=== PATIENT | male | born 1950 | race Caucasian/White ===

== ENCOUNTER 2016-08-25 05:58 | Inpatient (IN) | payer BC, MEDICARE ==
[~2016-08-25] VITALS: Ht 182.9 cm; Wt 83.5 kg
[~2016-08-25 05:58] MED LIST: /ACETCOD2T PO; /MOXI40TA PO; /WARF25TA PO; ACET-71 PO; ADV250INH INH; APAP325T PO; BREO1INH INH; CODE30TA PO; COMBAER6 INH; COMBIN INH; DUONSOL IN; FENO145T PO; FLUC100T PO; HOME 02; IPRASOL4 INH; LEVA500T PO; LEVA750T PO; LIDO1DIS2 TD; LIDO5DIS36 TD; LIPI20TA PO; MULT1CHW21 PO; NAPR500T2 PO; NAPRPOW4 PO; NICO21DI5 TD; NICO7DIS23 TD; OMEP20CA3 PO; OXYC-208 PO; PERCOCET PO; PRED10TA PO; PRIL40CA PO; PRO AIR INH; PROA1AER INH; TRICOR PO; TYLE325T5 PO; TYLENOL WITH CODEINE PO; VITAMIN PO; XANA0.25 PO
[2016-08-25 06:21] LABS: ABG BASE EXCESS 6.8 (-2.0-2.0); ABG DEVICE NASAL CANN; ABG HCO3 33.9 MEQ/L (22.0-26.0); ABG PARTIAL PRESSURE CO2 58.9 mmHg (35.0-45.0); ABG PARTIAL PRESSURE O2 92.7 mmHg (75.0-100.0); ABG STANDARD HCO3 30.6 MEQ/L (22.0-26.0); ABG TOTAL CO2 35.7 MEQ/L (23.0-31.0); ABG pH (ARTERIAL) 7.378 UNITS (7.350-7.450)
[2016-08-25] MEDS ORDERED: AMIODARONE HCL 150 MG/100 ML PREMIXED BAG (NEXTERONE) As Ordered ONE (06:24)
[2016-08-25] MEDS ORDERED: AMIODARONE 150MG/3ML INJ (J0282) As Ordered ONE (06:26)
[2016-08-25] MEDS ORDERED: IPRATROPIUM 0.5MG/ALBUTEROL 2.5MG INH SOL UD 3ML (DUONEB)(J7620) As Ordered ONE ×2 (06:32→14:37)
[2016-08-25 07:14] LABS: BASO % 0.2 % (0.0-1.0); EOS % 0.2 % (0.0-3.0); LARGE UNSTAINED CELL # 0.2 K/mm3 (0.0-0.4); LARGE UNSTAINED CELL % 1.7 % (0.0-4.0); LYMPH # 0.9 K/mm3 (1.5-4.5); LYMPH % 6.6 % (24.0-44.0); MEAN CORPUSCULAR HEMOGLOBIN 30.6 pg (27.0-33.0); MEAN CORPUSCULAR HGB CONC 31.7 g/dl (32.0-36.5); MEAN CORPUSCULAR VOLUME 96.3 fl (80.0-96.0); MONO # 0.8 K/mm3 (0.0-0.8); NEUTROPHILS % 85.3 % (36.0-66.0); PLATELET COUNT, AUTOMATED 219 k/mm3 (150-450); RED CELL DISTRIBUTION WIDTH 14.1 % (11.5-14.5); WHITE BLOOD COUNT 12.9 K/mm3 (4.0-10.0)
[2016-08-25 07:15] LABS: ALBUMIN 3.9 GM/DL (3.2-5.2); ALBUMIN/GLOBULIN RATIO 1.56 (1.00-1.93); BILIRUBIN,DIRECT 0.3 MG/DL (0.0-0.2); BILIRUBIN,TOTAL 1.1 MG/DL (0.2-1.0); CALCIUM LEVEL 8.9 MG/DL (8.8-10.2); CREATININE FOR GFR 1.5 MG/DL (0.70-1.30); GLOMERULAR FILTRATION RATE 49.7 (>49); POTASSIUM SERUM 4.7 MEQ/L (3.5-5.1); TOTAL PROTEIN 6.4 GM/DL (6.4-8.2)
--- NOTE | 2016-08-25 08:47 | REP ---
CT brain without contrast 08/25/2016 Indication: Syncope Comparison: None Findings: There is moderate generalized cerebral volume loss small scattered periventricular subcortical hypodensities are consistent with chronic small vessel ischemic disease. Old tiny left thalamic lacunar infarct is noted. There is moderate bilateral carotid siphon calcification ,There is no intracranial hemorrhage or extra-axial fluid collection. There is no midline shift or mass effect. Contour deformity within the left maxillary sinus consistent with old healed depressed fracture of the left anterior and lateral campos of the maxillary sinus. Small amount of mucoperiosteal thickening present in the bilateral frontoethmoidal recesses. Visualized portions of the mastoid sinuses There is no intracranial hemorrhage or extra-axial fluid collection. There is no midline shift or mass effect. Impression: No acute intracranial pathology or hemorrhage Moderate cerebral volume loss with mild chronic small vessel ischemic disease. Old tiny left thalamic lacunar infarct is noted. Mucoperiosteal thickening in bilateral frontoethmoidal recesses Signed by Maryjane Maya MD 08/25/2016 08:38 A
--- NOTE | 2016-08-25 08:50 | REP ---
MAXILLOFACIAL CT WITHOUT CONTRAST: HISTORY: Fall. Minimal mucosal thickening is present in the ethmoid sinuses. A 7 mm osteoma is present in the right frontal sinus. A 5 mm osteoma is present in the left frontal sinus. The remaining sinuses are clear. The osteomeatal units are patent. The middle and inferior nasal turbinates are partially paradoxical. 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 There is mild deviation of the nasal septum to the left. A spur is present arising from the left side of the nasal septum. The cribriform plate, medial campos of the orbits and optic canals are intact. The carotid canals form a segment of the posterolateral campos of the sphenoid sinus. The left sphenoid sinus septum inserts into left internal carotid canal wall. There is no fracture. IMPRESSION: 1. Sinus mucosal thickening as described above. 2. 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 Signed by Chris Ling MD 08/25/2016 08:55 A
[2016-08-25] MEDS ORDERED: MONT10TA2 PO (08:59)
[2016-08-25] MEDS ORDERED: ALPR1TAB3 PO (08:59)
[2016-08-25] MEDS ORDERED: PRED10TA PO (08:59)
[2016-08-25] MEDS ORDERED: NICO1DIS2 TD (09:00)
--- NOTE | 2016-08-25 09:22 | REP ---
AP and lateral views of the bilateral elbows, 08/25/2016 Indication, fall, pain in elbow Left elbow : Oblique and rotated lateral views, nonstandard positioning. There is soft tissue swelling, moderate overlying the olecranon process. Small corticated calcific fragment of bone 3 mm maximal dimension is seen off the coronoid process, likely related to old avulsion or ligamentous calcification. There is no visualized acute fracture there is no evidence of elbow joint effusion Impression: moderate soft tissue swelling overlying the olecranon process may be related to post traumatic changes or olecranon bursitis. 3 mm corticated fragment in the from the region of the coronoid process, does not appear acute. Right elbow: Oblique and lateral views, with slightly limited positioning. There is soft tissue swelling and irregularity overlying the olecranon process and the dorsal proximal ulna. There is no visualized acute fracture or dislocation. There is no visualized joint effusion. There is a small IV catheter within the antecubital fossa. Impression: No acute fracture or dislocation within the right elbow. No joint effusion Signed by Maryjane Maya MD 08/25/2016 09:14 A
--- NOTE | 2016-08-25 09:31 | REP ---
Clinical: Syncope. Comparison: 12/15/2015. Findings: Diffuse chronic pleural parenchymal changes are noted. Mediastinum and cardiac silhouette are stable. Superimposed pulmonary venous congestion and interstitial edema as well as right basilar atelectasis cannot be excluded. No effusion. No pneumothorax. Skeletal structures stable. Impression: Cannot exclude pulmonary venous congestion/interstitial edema as well as trace right basilar atelectasis. Signed by Gregg Trotter MD 08/25/2016 09:22 A
[2016-08-25] MEDS ORDERED: MORPHINE 2 MG/ML 1ML SYRINGE As Ordered ONE (10:05)
--- NOTE | 2016-08-25 12:08 | ECGEPIP ---
Stationary ECG Study [facility] - ED Test Date: 2016-08-25 Pat Name: DIPAK VILLASENOR Department: Room: - Gender: M [employer]: bree : 1950 Requested By: ROSANGELA LORENZO Order Number: [id number] Reading MD: Crissy Redmond Measurements Intervals [place] Rate: 121 P: 57 NM: 142 QRS: 68 QRSD: 102 T: 30 QT: 285 QTc: 405 Interpretive Statements SINUS TACHYCARDIA WITH OCCASIONAL VENTRICULAR PREMATURE COMPLEXES ABNORMAL RHYTHM ECG [id number] ABNORMALITY SIMILAR 12/15/15 Electronically Signed On 08-25-2016 12:07:39 EST by Crissy Redmond
[2016-08-25 12:30] VITALS: BP 130/85
[2016-08-25] MEDS ORDERED: ONDANSETRON 4 MG TAB (S0181) PO PRN (12:45)
[2016-08-25] MEDS ORDERED: ACETAMINOPHEN TAB 650MG DOSE (2X325MG) PO PRN (12:45)
[2016-08-25] MEDS ORDERED: ALBUTEROL 90 MCG/ACT 8GM HFA INHALER INH PRN (13:15)
--- NOTE | 2016-08-25 14:09 | REP ---
BILATERAL KNEE SERIES: Five views of bilateral knees performed. There is no acute fracture or dislocation. There is mild medial joint space narrowing bilaterally. There is bilateral chondrocalcinosis. Ligamentous calcification is seen along the left medial femoral condyle. Posterior vascular calcifications are seen bilaterally. There is slight patellofemoral compartment narrowing on the left. IMPRESSION: Mild bilateral degenerative changes. No fracture or dislocation. Signed by Faisal Ross MD 08/25/2016 03:23 P
--- NOTE | 2016-08-25 14:12 | REP ---
PELVIS AND BILATERAL HIPS: AP view of the pelvis and AP and frogleg views of bilateral hips performed. There is a total right hip prosthesis which appears to be in good position. However, there is a nondisplaced fracture of the proximal right femur only seen on the frogleg view. This appears to be in the immediate subtrochanteric region. I see no other evidence of acute fracture or dislocation. There are vascular calcifications in the pelvis. There is are degenerative changes of the lower lumbar spine. IMPRESSION: Nondisplaced fracture, proximal right femur adjacent to the stem of the metallic prosthesis at that location. Signed by Faisal Ross MD 08/25/2016 03:23 P
[2016-08-25] MEDS: IPRATROPIUM 0.5MG/ALBUTEROL 2.5MG INH SOL UD 3ML (DUONEB)(J7620) NEB SCH ×2 (14:42→20:00)
--- NOTE | 2016-08-25 14:55 | EDDOCDS ---
Nurse's Notes [facility] Name: Dipak Villasenor Age: 66 yrs Sex: Male : 1950 Arrival Date: 08/25/2016 Time: 05:58 Bed Ultrasound Private MD: aMria Sebastian DO Diagnosis: Altered mental status, unspecified;Fall (on) (from) unspecified stairs and steps;Pain in elbow Presentation: 08/25 06:00 Presenting complaint:. kas2 06:08 Presenting complaint: EMS states: went to bed at 2200, patient was in his chair at nn1 that time. woke up at 0530, found patient on the floor. Unknown down time. Patient had altered mental status at that time. Suicide/Homicide risk assessment- the patient denies having any suicidal and/or homicidal ideations and does not present with any other emotional, behavioral or mental health complaints. Status: Patient is not a service inspector or dependent. Transition of care: patient was not received from another setting of care. 06:08 Acuity: MAE Level 3 nn1 06:08 Method Of Arrival: Ambulance nn1 06:47 Adult Sepsis Screening: Patient has new or worsening altered mentation (1 point). kas2 Patient's respiratory rate is less than 22. Systolic blood pressure is greater than 100. Patient has a qSOFA score of 1- Negative Sepsis Screen. Triage Assessment: 06:18 General: Appears distressed, uncomfortable, unkempt, Behavior is drowsy, restless. kas2 Pain: Location: right elbow and left elbow Pain currently is 7 out of 10 on a pain scale. Neurological: Level of Consciousness is awake, alert, confused, obeys commands, Oriented to person, place, Nurse Sane are equal bilaterally Speech garbled at times. Facial symmetry appears normal, Pupils are irregular, left pupil 4mm and right pupil is 2mm. Cardiovascular: Capillary refill < 3 seconds Heart tones S1 S2 present Rhythm is. 06:32 Respiratory: Airway is patent Respiratory effort is even, unlabored, Respiratory kas2 pattern is regular, symmetrical, Breath sounds are clear Breath sounds are diminished bilaterally. GI: Abdomen is distended, Bowel sounds present X 4 quads. Abd is soft X 4 quads Abd is non tender X 4 quads. Derm: Skin is moist, Skin is flushed, Skin temperature is warm Rash noted that is on raised red rash burn along mid section of abdomen. 06:43 Injury Description: Laceration sustained to bridge of nose. kas2 Historical: - Allergies: Hornets; SULFA (SULFONAMIDES); - Home Meds: 1. alprazolam 1 mg Oral Tb24 1 tab twice a day 2. atorvastatin 20 mg oral tab 1 tab once daily 3. montelukast 10 mg oral tab 1 tab nightly 4. prednisone 10 mg Oral tab 1 tab 3 times per day 5. albuterol sulfate 2.5 mg /3 mL (0.083 %) Inhl nebu 6. pro air- HFA 90mcg daily 7. Breo Ellipta 100-25 mcg/dose inhalation dsdv 8. Combivent 18-103 mcg/actuation Inhl aero 2 puffs 4 times per day 9. Lidoderm 5 % Topical ptmd as needed 10. Oxygen 2-3L - PMHx: COPD; Emphysema; Hypercholesterolemia; - PSHx: Knee Arthroplasty, Left; Hip Arthroplasty, Right; Knee Arthroplasty, Right; lumbar surgery; - Social history: Smoking status: Patient states former smoker of tobacco. No barriers to communication noted, The patient speaks fluent Burmese, Speaks appropriately for age. - Family history: Not pertinent. - : The pt / caregiver states he / she is not on anticoagulants. Home medication list is obtained from the patient, family members. - Exposure Risk Screening:: None identified. Screenin:49 Screening information is obtained from family members. Fall risk: At risk due to age, kas2 injury. Assistance ADL's: requires no assistance with activities of daily living. Abuse/DV Screen: The patient / caregiver reports he/she is: Unable to Assess. Nutritional screening: No deficits noted. Advance Directives: Unable to assess Advance Directive status due to pt condition. home support is adequate. Assessment: 06:10 General: Patients heart rate showing bigeminy on monitor and ECG done and shows the kas2 same. Dr. Lorenzo aware.. 06:48 General: See triage note.. kas2 06:49 General: Patient has a laceration on the bridge of his nose and a laceration on each kas2 elbow left and right. Bleeding controlled. Patient remains confused with garbled speech at times. Alert and awake and oriented to person and place. Family at bedside.. 07:22 General: Appears Behavior is cooperative, pleasant. Pain: Location: bilateral knees and mlb1 elbows Pain currently is 7 out of 10 on a pain scale. Respiratory: Airway is patent Respiratory effort is even, unlabored. Injury Description: Bruise multiple bruises to elbows and knees laceration to bridge of nose scabbed swelling to bilateral eyes. 08:21 General: Appears in no apparent distress, to be sleeping. Respiratory: Airway is patent mlb1 Respiratory effort is even, unlabored. 09:16 General: Appears in no apparent distress, Behavior is cooperative, pleasant. Pain: mlb1 Location: bilateral knees and elbows Pain currently is 7 out of 10 on a pain scale. Neurological: Level of Consciousness is awake, alert, Oriented to person, place, time, Speech garbled. Respiratory: Airway is patent Respiratory effort is even, unlabored. 10:27 General: Appears in no apparent distress, Behavior is appropriate for age, cooperative. mlb1 Pain: Location: bilateral knees, and elbows Pain currently is 6 out of 10 on a pain scale. Neurological: Level of Consciousness is awake, alert, Oriented to person, place, time. 11:30 General: Appears in no apparent distress, comfortable, Behavior is appropriate for age, mlb1 cooperative. Pain: Location: bilateral knees and elbows Pain currently is 5 out of 10 on a pain scale. Neurological: Level of Consciousness is awake, alert, Oriented to person, place, time, Moves all extremities. Full function Speech garbled. 12:30 General: Appears in no apparent distress, comfortable, Behavior is appropriate for age, mlb1 cooperative. Pain: Location: bilateral knees and elbows Pain currently is 5 out of 10 on a pain scale. Neurological: Level of Consciousness is awake, alert, Oriented to person, place, time. Respiratory: No deficits noted. 13:24 General: Appears in no apparent distress, comfortable, Behavior is appropriate for age, mlb1 cooperative. Pain: Location: bilaral knee and elbows Pain currently is 5 out of 10 on a pain scale. Neurological: Level of Consciousness is awake, alert, Oriented to person, place, time, Moves all extremities. Full function Speech garbled. Respiratory: Airway is patent Respiratory effort is even, unlabored. 14:52 General: Appears in no apparent distress, comfortable, Behavior is appropriate for age, ck1 cooperative. Pain: Location: bridge of nose Noted to be quiet/stoic. Neurological: Level of Consciousness is awake, alert, Oriented to person, place, time. Cardiovascular: Rhythm is irregular. Respiratory: Respiratory effort is unlabored, Respiratory pattern is regular. GI: No deficits noted. Musculoskeletal: Circulation, motion, and sensation intact Range of motion intact in all extremities. Vital Signs: 06:12 BP 106 / 69 (auto/); mlb1 06:13 BP 106 / 69; Pulse 123; Resp 16; Pulse Ox 95% on 13% Venturi mask; Weight 79.38 kg; sew Height 6 ft. 0 in. (182.88 cm); 06:13 Pulse 124 MON; mlb1 06:15 BP 109 / 72 (auto/); mlb1 06:16 Pulse 124 MON; Pulse Ox 95% ; mlb1 06:30 BP 106 / 62 (auto/); mlb1 06:30 Pulse 122 MON; Pulse Ox 95% ; mlb1 06:45 BP 134 / 79 (auto/); mlb1 06:45 Pulse 122 MON; Pulse Ox 86% ; mlb1 06:59 Temp 100.3(A); kas2 07:00 BP 115 / 65 (auto/); mlb1 07:01 Pulse 116 MON; Pulse Ox 94% ; mlb1 07:15 BP 100 / 58 (auto/); mlb1 07:16 Pulse 119 MON; mlb1 07:30 BP 104 / 84 (auto/); mlb1 07:31 Pulse 114 MON; Pulse Ox 94% ; mlb1 07:45 BP 116 / 11 (auto/); mlb1 07:48 Pulse 109 MON; mlb1 08:00 BP 102 / 68 (auto/); mlb1 08:00 Pulse 108 MON; Pulse Ox 92% ; mlb1 08:15 BP 124 / 72 (auto/); mlb1 08:16 Pulse 107 MON; Pulse Ox 92% ; mlb1 08:30 BP 125 / 82 (auto/); mlb1 08:31 Pulse 110 MON; Pulse Ox 95% ; mlb1 08:45 BP 134 / 75 (auto/); mlb1 08:46 Pulse 111 MON; Pulse Ox 97% ; mlb1 09:04 BP 132 / 82 (auto/); mlb1 09:05 Pulse 107 MON; mlb1 09:19 BP 130 / 91 (auto/); mlb1 09:20 Pulse 103 MON; Pulse Ox 94% ; mlb1 09:34 BP 132 / 69 (auto/); mlb1 09:35 Pulse 108 MON; Pulse Ox 93% ; mlb1 09:49 BP 118 / 75 (auto/); mlb1 09:50 Pulse 104 MON; mlb1 10:04 BP 149 / 88 (auto/); mlb1 10:05 Pulse 105 MON; mlb1 10:25 BP 111 / 61 (auto/); mlb1 10:26 Pulse 103 MON; Pulse Ox 96% ; mlb1 10:27 BP 111 / 61; Pulse 103; Resp 16; Pulse Ox 97% on 3 lpm NC; Pain 6/10; mlb1 10:34 BP 123 / 73 (auto/); mlb1 10:35 Pulse 102 MON; Pulse Ox 94% ; mlb1 10:49 BP 129 / 69 (auto/); mlb1 10:50 Pulse 94 MON; Pulse Ox 91% ; mlb1 11:04 BP 129 / 60 (auto/); mlb1 11:05 Pulse 101 MON; Pulse Ox 94% ; mlb1 11:19 BP 125 / 66 (auto/); mlb1 11:20 Pulse 92 MON; Pulse Ox 92% ; mlb1 11:34 BP 121 / 83 (auto/); mlb1 11:35 Pulse 95 MON; mlb1 11:49 BP 118 / 72 (auto/); mlb1 11:50 Pulse 98 MON; mlb1 11:59 BP 116 / 75 (auto/); mlb1 12:00 Pulse 96 MON; Pulse Ox 97% ; mlb1 12:04 BP 132 / 84 (auto/); mlb1 12:05 Pulse 94 MON; Pulse Ox 98% ; mlb1 12:19 BP 130 / 85 (auto/); mlb1 12:20 Pulse 93 MON; Pulse Ox 96% ; mlb1 12:34 BP 136 / 67 (auto/); mlb1 12:34 Pulse 95 MON; Pulse Ox 96% ; mlb1 14:50 BP 117 / 73; Pulse 100; Resp 20; Temp 98.5; Pulse Ox 94% ; jlf 06:13 Body Mass Index 23.73 (79.38 kg, 182.88 cm) sew Vitals: 06:13 Log In Time N/A - ambulance arrival. sew ED Course: 05:59 Kathe Quintero,RN is Primary Nurse. sew 05:59 Patient visited by Crissy Fritz. sew 05:59 Maria Sebastian is Private Physician. sew 05:59 Patient moved to 2 sew 06:10 Triage Initiated nn1 06:16 Patient visited by Crissy Fritz. sew 06:20 -Arterial Blood Gas Sent. dk 06:32 Patient visited by Josi Waldrop, Software Specialist. jlm 06:32 EKG done. (by ED staff). Reviewed by Rosangela Lorenzo DO. jlm 06:48 Maintain field IV. Dressing intact. Site clean & dry. Gauge & site: 18G in left AC. No kas2 procedures done that require assistance. 06:49 Inserted saline lock: 20 gauge in right antecubital area and blood collected. The kas2 patient tolerated the procedure well. 06:51 Patient visited by Kathe Quintero RN. kas2 06:59 Patient visited by Kathe Quintero RN. kas2 07:00 Lactic Acid (Ross tube on ice) Sent. kas2 07:00 CBC with Diff Sent. kas2 07:00 MED Profile Sent. kas2 07:00 Liver Profile Sent. kas2 07:00 -Blood Culture Sent. kas2 07:09 Malaika Contreras MD is Attending Physician. fg 07:10 Patient visited by Malaika Contreras MD. fg 07:22 BLOOD CULTURES Sent. mlb1 07:56 Patient visited by Ti Crook PCA. jlf 08:02 Primary Nurse role handed off by Kathe Quintero RN btw 08:45 [facility] Payment Agreement was scanned into [employer] and attached to record. mm15 09:04 Patient visited by Ti Crook PCA. jlf 09:08 CT Head Without Contrast Returned. EDMS 09:08 CT Maxilofacial W/out Contrast Returned. EDMS 09:42 Patient visited by Ti Crook PCA. jlf 09:48 Elbow, (AP\E\Lat) Returned. EDMS 09:48 Chest, 1 View Returned. EDMS 10:15 Patient visited by Ti Crook PCA. jlf 10:28 Patient visited by Los Velazquez, ABIMAEL. mlb1 11:00 Patient visited by Ti Crook PCA. jlf 11:01 Ani Lind is Hospitalizing Provider. fg 12:04 Patient visited by Los Velazquez, ABIMAEL. mlb1 12:30 EKG-ADULT Returned. EDMS 12:50 Patient moved to Ultrasound am17 13:25 Patient visited by Los Velazquez RN. mlb1 13:36 The patient / caregiver is instructed regarding the plan of care and ED course. mlb1 14:03 RENAL US Returned. EDMS 14:49 Knee, complete Returned. EDMS 14:50 Patient visited by Ti Crook PCA. jlf 14:50 HIPS BILAT W-AP PELVIS Returned. EDMS Administered Medications: 06:37 Drug: Albuterol-Ipratropium 3 ml [ipratropium-albuterol 0.5 mg-3 mg(2.5 mg base)/3 mL dk nebulization soln (3 mL)] Route: Inhalation; 06:46 Drug: amiodarone 150 mg [amiodarone 150 mg/100 mL (1.5 mg/mL) in dextrose, iso-osmotic kas2 IV (100 mL)] Route: IVP; Site: right antecubital; 10:10 Drug: morphine 2 mg [morphine 2 mg/mL intravenous cartridge (1 mL)] Route: IVP; Site: mlb1 right antecubital; 10:27 Follow up: BP 111 / 61; Pulse 103 bpm; Resp 16 bpm; Pulse Ox 97% 3 lpm Nasal Cannula; mlb1 Pain 6/10 Adult RT: 06:20 ABG's drawn from right radial artery allens test done and positive pressure held for 5 dk minutes no bleeding noted pressure bandage applied specimen sent pt. tolerated well. 06:37 Initial Med Neb Given as ordered Patient was instructed and evaluated on procedure dk Patient tolerated procedure well without adverse effect. O2 via nasal cannula \T\ 4L/min. Respiratory: No deficits noted. Airway is patent Respiratory effort is even, unlabored, Breath sounds are diminished bilaterally. Order Results: Lab Order: -Arterial Blood Gas; SPEC'M 08/25/16 06:16 Test: ABG pH (ARTERIAL); Value: 7.378; Range: 7.350-7.450; Units: UNITS; Status: F Test: ABG PARTIAL PRESSURE CO2; Value: 58.9; Range: 35.0-45.0; Abnormal: Above high normal; Units: mmHg; Status: F Test: ABG PARTIAL PRESSURE O2; Value: 92.7; Range: 75.0-100.0; Units: mmHg; Status: F Test: ABG TOTAL CO2; Value: 35.7; Range: 23.0-31.0; Abnormal: Above high normal; Units: MEQ/L; Status: F Test: ABG HCO3; Value: 33.9; Range: 22.0-26.0; Abnormal: Above high normal; Units: MEQ/L; Status: F Test: ABG BASE EXCESS; Value: 6.8; Range: -2.0-2.0; Abnormal: Above high normal; Status: F Test: ABG STANDARD HCO3; Value: 30.6; Range: 22.0-26.0; Abnormal: Above high normal; Units: MEQ/L; Status: F Test: ABG O2 SATURATION; Value: 97.0; Range: 95.0-99.0; Units: %; Status: F Test: ABG DEVICE; Value: NASAL DARA; Status: F Lab Order: Lactic Acid (Ross tube on ice); SPEC'M 08/25/16 06:12 Test: LACTIC ACID LEVEL, LACTATE; Value: 0.8; Range: 0.4-2.0; Units: MMOL/L; Status: F Lab Order: CBC with Diff; SPEC'M 08/25/16 06:12 Test: WHITE BLOOD COUNT; Value: 12.9; Range: 4.0-10.0; Abnormal: Above high normal; Units: K/mm3; Status: F Test: RED BLOOD COUNT; Value: 4.55; Range: 4.30-6.10; Units: M/mm3; Status: F Test: HEMOGLOBIN; Value: 13.9; Range: 14.0-18.0; Abnormal: Below low normal; Units: g/dl; Status: F Test: HEMATOCRIT; Value: 43.8; Range: 42.0-52.0; Units: %; Status: F Test: MEAN CORPUSCULAR VOLUME; Value: 96.3; Range: 80.0-96.0; Abnormal: Above high normal; Units: fl; Status: F Test: MEAN CORPUSCULAR HEMOGLOBIN; Value: 30.6; Range: 27.0-33.0; Units: pg; Status: F Test: MEAN CORPUSCULAR HGB CONC; Value: 31.7; Range: 32.0-36.5; Abnormal: Below low normal; Units: g/dl; Status: F Test: RED CELL DISTRIBUTION WIDTH; Value: 14.1; Range: 11.5-14.5; Units: %; Status: F Test: PLATELET COUNT, AUTOMATED; Value: 219; Range: 150-450; Units: k/mm3; Status: F Test: NEUTROPHILS %; Value: 85.3; Range: 36.0-66.0; Abnormal: Above high normal; Units: %; Status: F Test: LYMPH %; Value: 6.6; Range: 24.0-44.0; Abnormal: Below low normal; Units: %; Status: F Test: MONO %; Value: 6.0; Range: 0.0-5.0; Abnormal: Above high normal; Units: %; Status: F Test: EOS %; Value: 0.2; Range: 0.0-3.0; Units: %; Status: F Test: BASO %; Value: 0.2; Range: 0.0-1.0; Units: %; Status: F Test: LARGE UNSTAINED CELL %; Value: 1.7; Range: 0.0-4.0; Units: %; Status: F Test: NEUTROPHILS #; Value: 11.0; Range: 1.8-7.7; Abnormal: Above high normal; Units: K/mm3; Status: F Test: LYMPH #; Value: 0.9; Range: 1.5-4.5; Abnormal: Below low normal; Units: K/mm3; Status: F Test: MONO #; Value: 0.8; Range: 0.0-0.8; Units: K/mm3; Status: F Test: EOS #; Value: 0.0; Range: 0.0-0.50; Units: K/mm3; Status: F Test: BASO #; Value: 0.0; Range: 0.0-0.2; Units: K/mm3; Status: F Test: LARGE UNSTAINED CELL #; Value: 0.2; Range: 0.0-0.4; Units: K/mm3; Status: F Lab Order: [facility]; SPEC'M 08/25/16 06:12 Test: GLUCOSE, FASTING; Value: 78; Range: 80-110; Abnormal: Below low normal; Units: MG/DL; Status: F Test: BLOOD UREA NITROGEN; Value: 20; Range: 7-18; Abnormal: Above high normal; Units: MG/DL; Status: F Test: CREATININE FOR GFR; Value: 1.50; Range: 0.70-1.30; Abnormal: Above high normal; Units: MG/DL; Status: F Test: GLOMERULAR FILTRATION RATE; Value: 49.7; Range: >49; Status: F Test: SODIUM LEVEL; Value: 146; Range: 136-145; Abnormal: Above high normal; Units: MEQ/L; Status: F Test: POTASSIUM SERUM; Value: 4.7; Range: 3.5-5.1; Units: MEQ/L; Status: F Test: CHLORIDE LEVEL; Value: 104; Range: 98-107; Units: MEQ/L; Status: F Test: CARBON DIOXIDE LEVEL; Value: 37; Range: 21-32; Abnormal: Above high normal; Units: MEQ/L; Status: F Test: ANION GAP; Value: 5; Range: 8-16; Abnormal: Below low normal; Units: MEQ/L; Status: F Test: CALCIUM LEVEL; Value: 8.9; Range: 8.8-10.2; Units: MG/DL; Status: F Test Note: ; Units are mL/min/1.73 m2 Chronic Kidney Disease Staging per NKF: Stage I & II GFR >=60 Normal to Mildly Decreased Stage III GFR 30-59 Moderately Decreased Stage IV GFR 15-29 Severely Decreased Stage V GFR <15 Very Little GFR Left ESRD GFR <15 on PLATFORM OPERATIONS DIRECTOR Lab Order: Liver Profile; SPEC'M 08/25/16 06:12 Test: AST/SGOT; Value: 74; Range: 15-37; Abnormal: Above high normal; Units: U/L; Status: F Test: ALT/SGPT; Value: 69; Range: 12-78; Units: U/L; Status: F Test: ALKALINE PHOSPHATASE; Value: 76; Range: 45-117; Units: U/L; Status: F Test: BILIRUBIN,TOTAL; Value: 1.1; Range: 0.2-1.0; Abnormal: Above high normal; Units: MG/DL; Status: F Test: BILIRUBIN,DIRECT; Value: 0.3; Range: 0.0-0.2; Abnormal: Above high normal; Units: MG/DL; Status: F Test: TOTAL PROTEIN; Value: 6.4; Range: 6.4-8.2; Units: GM/DL; Status: F Test: ALBUMIN; Value: 3.9; Range: 3.2-5.2; Units: GM/DL; Status: F Test: ALBUMIN/GLOBULIN RATIO; Value: 1.56; Range: 1.00-1.93; Status: F Lab Order: CARDIAC MARKER PANEL; SPEC'M 08/25/16 13:39 Test: CPK CREATINE PHOSPHOKINASE; Value: 1428; Range: 39-308; Abnormal: Above high normal; Units: U/L; Status: F Test: CK-MB VALUE MASS; Value: 19.0; Range: 0.0-3.6; Abnormal: Above high normal; Units: NG/ML; Status: F Test: MB/CK RELATIVE INDEX; Value: 1.33; Range: < OR =4; Status: F Test: TROPONIN I; Value: 0.64; Range: < 0.10; Abnormal: Above high normal; Units: NG/ML; Status: F Test Note: ; DIAGNOSIS CRITERIA MMB ng/ml Relative Index (RI) NON-AMI < or = 5 N/A ROSS ZONE > 5 < or = 4 AMI > 5 > 4 Lab Order: C REACTIVE PROTEIN QUANTITATIV; SPEC'M 08/25/16 13:39 Test: C REACTIVE PROTEIN QUANTITATIV; Value: 6.06; Range: 0.00-0.30; Abnormal: Above high normal; Units: MG/DL; Status: F Radiology Order: EKG-ADULT Test: EKG-ADULT REASON FOR EXAMINATION: irregular heart rate; Stationary ECG Study; [facility] - ED; ; Test Date: 2016-08-25; Pat Name: DIPAK VILLASENOR Department:; Room: -; Gender: M 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; : 1950 Requested By: ROSANGELA LORENZO; Order Number: [id number] Reading MD: Crissy Redmond; Measurements; Intervals [place]; Rate: 121 P: 57; DC: 142 QRS: 68; QRSD: 102 T: 30; QT: 285; QTc: 405; Interpretive Statements; SINUS TACHYCARDIA WITH OCCASIONAL VENTRICULAR PREMATURE COMPLEXES; ABNORMAL RHYTHM ECG; NSTTW ABNORMALITY; SIMILAR 12/15/15; Electronically Signed On 08-25-2016 12:07:39 EST by Crissy Redmond; Radiology Order: CT Head Without Contrast Test: CT Head Without Contrast REASON FOR EXAMINATION: Syncope; CT brain without contrast 08/25/2016; ; Indication: Syncope; ; Comparison: None; ; Findings: There is moderate generalized cerebral volume loss small scattered; periventricular subcortical hypodensities are consistent with chronic small; vessel ischemic disease. Old tiny left thalamic lacunar infarct is noted. There; is moderate bilateral carotid siphon calcification ,There is no intracranial; hemorrhage or extra-axial fluid collection. There is no midline shift or mass; effect.; ; Contour deformity within the left maxillary sinus consistent with old healed; depressed fracture of the left anterior and lateral campos of the maxillary; sinus.; ; Small amount of mucoperiosteal thickening present in the bilateral; frontoethmoidal recesses.; ; Visualized portions of the mastoid sinuses There is no intracranial hemorrhage or; extra-axial fluid collection. There is no midline shift or mass effect.; ; Impression:; ; No acute intracranial pathology or hemorrhage; ; Moderate cerebral volume loss with mild chronic small vessel ischemic disease.; Old tiny left thalamic lacunar infarct is noted.; ; Mucoperiosteal thickening in bilateral frontoethmoidal recesses; ; ; ; ; Signed by; Maryjane Maya MD 08/25/2016 08:38 A; Radiology Order: Chest, 1 View Test: Chest, 1 View REASON FOR EXAMINATION: Syncope; Clinical: Syncope.; ; Comparison: 12/15/2015.; ; Findings:; Diffuse chronic pleural parenchymal changes are noted. Mediastinum and cardiac; silhouette are stable. Superimposed pulmonary venous congestion and interstitial; edema as well as right basilar atelectasis cannot be excluded. No effusion. No; pneumothorax. Skeletal structures stable.; ; Impression:; Cannot exclude pulmonary venous congestion/interstitial edema as well as trace; right basilar atelectasis.; ; ; Signed by; Gregg Trotter MD 08/25/2016 09:22 A; Radiology Order: CT Maxilofacial W/out Contrast Test: CT Maxilofacial W/out Contrast REASON FOR EXAMINATION: fall; MAXILLOFACIAL CT WITHOUT CONTRAST:; ; HISTORY: Fall.; ; Minimal mucosal thickening is present in the ethmoid sinuses. A 7 mm osteoma is; present in the right frontal sinus. A 5 mm osteoma is present in the left frontal; sinus. The remaining sinuses are clear. The osteomeatal units are patent. The; middle and inferior nasal turbinates are partially paradoxical. There is satnam; bullosa of the middle nasal turbinates. There is mild deviation of the nasal; septum to the left. A spur is present arising from the left side of the nasal; septum. The cribriform plate, medial campos of the orbits and optic canals are; intact. The carotid canals form a segment of the posterolateral campos of the; sphenoid sinus. The left sphenoid sinus septum inserts into left internal carotid; canal wall. There is no fracture.; ; IMPRESSION:; ; 1. Sinus mucosal thickening as described above.; ; 2. 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 There; is soft tissue swelling, moderate overlying the olecranon process. Small; corticated calcific fragment of bone 3 mm maximal dimension is seen off the; coronoid process, likely related to old avulsion or ligamentous calcification.; There is no visualized acute fracture there is no evidence of elbow joint; effusion; ; Impression: moderate soft tissue swelling overlying the olecranon process may be; related to post traumatic changes or olecranon bursitis.; ; 3 mm corticated fragment in the from the region of the coronoid process, does not; appear acute.; ; ; ; Right elbow: Oblique and lateral views, with slightly limited positioning.; There is soft tissue swelling and irregularity overlying the olecranon process; and the dorsal proximal ulna. There is no visualized acute fracture or; dislocation. There is no visualized joint effusion.; ; There is a small IV catheter within the antecubital fossa.; ; Impression: No acute fracture or dislocation within the right elbow. No joint; effusion; ; ; ; ; ; ; ; ; ; ; Signed by; Maryjane Maya MD 08/25/2016 09:14 A; Radiology Order: RENAL US Test: RENAL US REASON FOR EXAMINATION: fatoumata; RENAL AND BLADDER ULTRASOUND:; ; Real-time sonographic evaluation of the kidneys performed and demonstrates both; kidneys to be normal in size and echotexture, right kidney measuring 12.8 x 5.5 x; 5.7 cm and left kidney 11.3 x 6.8 x 5.3 cm. There is no hydronephrosis, renal; mass or nephrolithiasis. The urinary bladder is moderately distended with no; definite mass or calculus. There is mild debris in the bladder.; ; IMPRESSION:; No hydronephrosis. Debris is seen in the bladder.; ; Unreviewed; Radiology Order: Knee, complete Test: Knee, complete REASON FOR EXAMINATION: fall; BILATERAL KNEE SERIES:; ; Five views of bilateral knees performed.; ; There is no acute fracture or dislocation. There is mild medial joint space; narrowing bilaterally. There is bilateral chondrocalcinosis. Ligamentous; calcification is seen along the left medial femoral condyle. Posterior vascular; calcifications are seen bilaterally. There is slight patellofemoral compartment; narrowing on the left.; ; IMPRESSION:; Mild bilateral degenerative changes. No fracture or dislocation.; ; ; ; Unreviewed; Radiology Order: HIPS BILAT W-AP PELVIS Test: HIPS BILAT W-AP PELVIS REASON FOR EXAMINATION: fall; ; PELVIS AND BILATERAL HIPS:; ; AP view of the pelvis and AP and frogleg views of bilateral hips performed.; ; There is a total right hip prosthesis which appears to be in good position.; However, there is a nondisplaced fracture of the proximal right femur only seen; on the frogleg view. This appears to be in the immediate subtrochanteric region.; I see no other evidence of acute fracture or dislocation.; ; There are vascular calcifications in the pelvis. There is are degenerative; changes of the lower lumbar spine.; ; IMPRESSION:; Nondisplaced fracture, proximal right femur adjacent to the stem of the metallic; prosthesis at that location.; ; ; ; Unreviewed; Outcome: 11:02 Decision to Hospitalize by Provider. fg 13:25 CT Study completed. mlb1 14:49 Discharge Assessment: patient administered narcotics - yes. Patient was admitted to the [address] or transferred to another facility. 14:49 The following High Risk Discharge criteria are identified: None. Admitted to PCU [facility] accompanied by nurse, family with patient, via stretcher, with oxygen, on monitor, with chart. Condition: stable. Property :Personal belongings accompany Pt. 14:53 Patient left the ED. [facility] Signatures: Dispatcher [employer] EDMS Los Velazquez RN RN mlb1 Chelsea MtzRN RN ck1 Cheryl Almaguer,RT RT Reji Diaz PA PA btw Wallace, Sarah sew McGrath, Marlynn mm15 Ti Crook, CHARGE GANG WEIGHER CHARGE GANG WEIGHER jlf Yamile James am17 Josi Waldrop, Software Specialist Unit Rachel Ramsey,RN RN nn1 Malaika Contreras MD MD fg Smith, KimRN RN kas2 Corrections: (The following items were deleted from the chart) 14:50 14:49 Discharge Assessment: patient administered narcotics - no [place] [id number] MTDD
--- NOTE | 2016-08-25 14:55 | EDDOCDS ---
Physician Documentation [employer] Name: Zack Charles Age: 66 yrs Sex: Male : 1950 Arrival Date: 08/25/2016 Time: 05:58 Bed Ultrasound Private MD: Maria Sebastian DO Disposition: 08/25/16 11:02 Hospitalization ordered by Ani Lind for Inpatient Admission. Preliminary diagnosis are Altered mental status, unspecified, Fall (on) (from) unspecified stairs and steps, Pain in elbow. - Bed requested for PCU. - Status is Inpatient Admission. ck1 - Condition is Stable. - Problem is new. - Symptoms have improved. Historical: - Allergies: Hornets; SULFA (SULFONAMIDES); - Home Meds: 1. alprazolam 1 mg Oral Tb24 1 tab twice a day 2. atorvastatin 20 mg oral tab 1 tab once daily 3. montelukast 10 mg oral tab 1 tab nightly 4. prednisone 10 mg Oral tab 1 tab 3 times per day 5. albuterol sulfate 2.5 mg /3 mL (0.083 %) Inhl nebu 6. pro air- HFA 90mcg daily 7. Breo Ellipta 100-25 mcg/dose inhalation dsdv 8. Combivent 18-103 mcg/actuation Inhl aero 2 puffs 4 times per day 9. Lidoderm 5 % Topical ptmd as needed 10. Oxygen 2-3L - PMHx: COPD; Emphysema; Hypercholesterolemia; - PSHx: Knee Arthroplasty, Left; Hip Arthroplasty, Right; Knee Arthroplasty, Right; lumbar surgery; - Social history: Smoking status: Patient states former smoker of tobacco. No barriers to communication noted, The patient speaks fluent Swedish, Speaks appropriately for age. - Family history: Not pertinent. - : The pt / caregiver states he / she is not on anticoagulants. Home medication list is obtained from the patient, family members. - Exposure Risk Screening:: None identified. Vital Signs: 08/25 06:12 BP 106 / 69 (auto/); mlb1 06:13 BP 106 / 69; Pulse 123; Resp 16; Pulse Ox 95% on 13% Venturi mask; Weight 79.38 kg / sew 175 lbs; Height 6 ft. 0 in. (182.88 cm); 06:13 Pulse 124 MON; mlb1 06:15 BP 109 / 72 (auto/); mlb1 06:16 Pulse 124 MON; Pulse Ox 95% ; mlb1 06:30 BP 106 / 62 (auto/); mlb1 06:30 Pulse 122 MON; Pulse Ox 95% ; mlb1 06:45 BP 134 / 79 (auto/); mlb1 06:45 Pulse 122 MON; Pulse Ox 86% ; mlb1 06:59 Temp 100.3(A); kas2 07:00 BP 115 / 65 (auto/); mlb1 07:01 Pulse 116 MON; Pulse Ox 94% ; mlb1 07:15 BP 100 / 58 (auto/); mlb1 07:16 Pulse 119 MON; mlb1 07:30 BP 104 / 84 (auto/); mlb1 07:31 Pulse 114 MON; Pulse Ox 94% ; mlb1 07:45 BP 116 / 11 (auto/); mlb1 07:48 Pulse 109 MON; mlb1 08:00 BP 102 / 68 (auto/); mlb1 08:00 Pulse 108 MON; Pulse Ox 92% ; mlb1 08:15 BP 124 / 72 (auto/); mlb1 08:16 Pulse 107 MON; Pulse Ox 92% ; mlb1 08:30 BP 125 / 82 (auto/); mlb1 08:31 Pulse 110 MON; Pulse Ox 95% ; mlb1 08:45 BP 134 / 75 (auto/); mlb1 08:46 Pulse 111 MON; Pulse Ox 97% ; mlb1 09:04 BP 132 / 82 (auto/); mlb1 09:05 Pulse 107 MON; mlb1 09:19 BP 130 / 91 (auto/); mlb1 09:20 Pulse 103 MON; Pulse Ox 94% ; mlb1 09:34 BP 132 / 69 (auto/); mlb1 09:35 Pulse 108 MON; Pulse Ox 93% ; mlb1 09:49 BP 118 / 75 (auto/); mlb1 09:50 Pulse 104 MON; mlb1 10:04 BP 149 / 88 (auto/); mlb1 10:05 Pulse 105 MON; mlb1 10:25 BP 111 / 61 (auto/); mlb1 10:26 Pulse 103 MON; Pulse Ox 96% ; mlb1 10:27 BP 111 / 61; Pulse 103; Resp 16; Pulse Ox 97% on 3 lpm NC; Pain 6/10; mlb1 10:34 BP 123 / 73 (auto/); mlb1 10:35 Pulse 102 MON; Pulse Ox 94% ; mlb1 10:49 BP 129 / 69 (auto/); mlb1 10:50 Pulse 94 MON; Pulse Ox 91% ; mlb1 11:04 BP 129 / 60 (auto/); mlb1 11:05 Pulse 101 MON; Pulse Ox 94% ; mlb1 11:19 BP 125 / 66 (auto/); mlb1 11:20 Pulse 92 MON; Pulse Ox 92% ; mlb1 11:34 BP 121 / 83 (auto/); mlb1 11:35 Pulse 95 MON; mlb1 11:49 BP 118 / 72 (auto/); mlb1 11:50 Pulse 98 MON; mlb1 11:59 BP 116 / 75 (auto/); mlb1 12:00 Pulse 96 MON; Pulse Ox 97% ; mlb1 12:04 BP 132 / 84 (auto/); mlb1 12:05 Pulse 94 MON; Pulse Ox 98% ; mlb1 12:19 BP 130 / 85 (auto/); mlb1 12:20 Pulse 93 MON; Pulse Ox 96% ; mlb1 12:34 BP 136 / 67 (auto/); mlb1 12:34 Pulse 95 MON; Pulse Ox 96% ; mlb1 14:50 BP 117 / 73; Pulse 100; Resp 20; Temp 98.5; Pulse Ox 94% ; jlf 06:13 Body Mass Index 23.73 (79.38 kg, 182.88 cm) sew MDM: 06:12 Call Respiratory ordered. kas2 06:13 -Arterial Blood Gas Ordered. EDMS 06:13 Call Respiratory complete. sew 06:24 ECG WITH READING ER PHYS+CARDIAG ordered. EDMS 06:31 Albuterol-Ipratropium 3 ml Inhalation once ordered. nn1 06:46 amiodarone 150 mg IVP once; infuse at 1.5 mg/hr ordered. kas2 06:58 -Blood Culture (Adults Only), peripheral from different site, or from device/port/PICC cs11 etc. if present ordered. 06:58 CT Head Without Contrast Ordered. EDMS 06:59 Chest, 1 View Ordered. EDMS 06:59 -Blood Culture Ordered. EDMS 06:59 Lactic Acid (Ross tube on ice) Ordered. EDMS 06:59 CBC with Diff Ordered. EDMS 06:59 MED Profile Ordered. EDMS 06:59 Liver Profile Ordered. EDMS 07:02 -Blood Culture (Adults Only), peripheral from different site, or from device/port/PICC jrd etc. if present complete. 07:03 BLOOD CULTURES Ordered. EDMS 07:11 CT Maxilofacial W/out Contrast Ordered. EDMS 08:30 Financial registration complete. mm15 08:34 Elbow, (AP\E\Lat) Ordered. EDMS 08:45 [facility] Payment Agreement was scanned into [employer] and attached to record. mm15 09:55 morphine 2 mg IVP once ordered. fg 12:43 CARDIAC MARKER PANEL Ordered. EDMS 12:43 CARDIAC MARKER PANEL Ordered. EDMS 12:43 C REACTIVE PROTEIN QUANTITATIV Ordered. EDMS 12:44 URINALYSIS Ordered. EDMS 12:44 OSMOLALITY,URINE Ordered. EDMS 12:44 SODIUM,RANDOM URINE Ordered. EDMS 12:44 POTASSIUM,RANDOM URINE Ordered. EDMS 12:44 CHLORIDE,RANDOM URINE Ordered. EDMS 12:44 TOTAL PROTEIN,RANDOM URINE Ordered. EDMS 12:44 CREATININE,RANDOM URINE Ordered. EDMS 12:44 RENAL US Ordered. EDMS 12:45 Knee, complete Ordered. EDMS 12:45 HIPS BILAT W-AP PELVIS Ordered. EDMS 12:45 ECHOCARD,DOPPLER/COLOR FLOW ordered. EDMS 12:45 CT Chest without contrast Ordered. EDMS 12:47 PHYSICAL THERAPY EVAL & TREAT ordered. EDMS 12:48 Admission / Observation Status ordered. EDMS 12:48 ELECTROCARDIOGRAM ADULT ordered. EDMS 12:48 REGULAR DIET ordered. EDMS Administered Medications: 06:37 Drug: Albuterol-Ipratropium 3 ml [ipratropium-albuterol 0.5 mg-3 mg(2.5 mg base)/3 mL dk nebulization soln (3 mL)] Route: Inhalation; 06:46 Drug: amiodarone 150 mg [amiodarone 150 mg/100 mL (1.5 mg/mL) in dextrose, iso-osmotic kas2 IV (100 mL)] Route: IVP; Site: right antecubital; 10:10 Drug: morphine 2 mg [morphine 2 mg/mL intravenous cartridge (1 mL)] Route: IVP; Site: mlb1 right antecubital; 10:27 Follow up: BP 111 / 61; Pulse 103 bpm; Resp 16 bpm; Pulse Ox 97% 3 lpm Nasal Cannula; mlb1 Pain 6/10 Adult Signatures: Dispatcher [employer] EDLos Del Valle RN RN mlb1 Chelsea Mtz RN RN ck1 Crissy Fritz Craig, DO DO cs11 Sachin Velasquez mm15 Bahman Caban, MANAGER INSPECTION MANAGER INSPECTION d Rachel RibeiroRN RN nn1 Malaika Contreras MD MD Kathe Quintero RN RN kas2 Cheryl Almaguer The chart was reviewed and I authenticate all verbal orders and agree with the evaluation and treatment provided.Attachments: 08:45 [facility] Payment Agreement mm15 MTDD
[2016-08-25] MEDS: predniSONE 20 MG TAB PO SCH ×2 (16:09→21:27)
[2016-08-25] MEDS: PERCOCET 5MG/325MG TAB PO PRN (16:10)
[2016-08-25] MEDS: PANTOPRAZOLE 40MG TAB (PROTONIX) PO SCH (16:10)
[2016-08-25] MEDS: ALPRAZolam 0.5 MG TAB PO PRN (16:10)
[2016-08-25] MEDS: NICOTINE 21MG/24HR 1 EA TRANSDERMAL TD SCH (16:12)
[2016-08-25] MEDS: AZITHROMYCIN 500 MG, VIAL MATE ADAPTER 1 EACH in D5W 250 ML IV SCH (16:12)
[2016-08-25] MEDS: LR 1,000 ML IV SCH (16:14)
[2016-08-25] MEDS: SENOKOT S TAB PO SCH ×2 (16:18→21:27)
--- NOTE | 2016-08-25 17:06 | HPE ---
DATE OF ADMISSION: 08/25/2016 PRIMARY CARE PROVIDER: Dr. Fischer CHIEF COMPLAINT: Fall and altered mental status. HISTORY OF PRESENT ILLNESS: This is a 66-year-old male patient with underlying medical history of advanced chronic obstructive pulmonary disease (COPD), oxygen and steroid dependent, emphysema, dyslipidemia. Patient presented. Was found on the floor. As per family, patient baseline lies on the first floor in a recliner , oxygen dependent with nebulizer. Patient was last seen normal at 10 p.m. Patient was found on the floor this morning face down in the bathroom with a cane right next to him. As per family, baseline patient uses a cane. Subsequently emergency medical services (EMS) was called this morning, and at that time patient was mildly confused. Patient was brought to the emergency room. Noticed to have bilateral knee, elbow, and chest abrasions and also facial, nose abrasions. As per family, patient falls frequently. Baseline uses a cane. Patient denies any chest pain, pressure, or discomfort. In the emergency room, patient's mental status slowly improved, almost back to baseline as per family. No neurological deficits. No urinary or fecal incontinence. No tongue biting. Denies any chest pain, pressure, or discomfort. Reported dyspnea, but at baseline patient has some dyspnea. Denies any sick contacts, recent travel, fevers or chills. Denies any nausea or vomiting. PAST MEDICAL HISTORY: 1. COPD/emphysema, oxygen and steroid dependent. 2. Dyslipidemia. PAST SURGICAL HISTORY: 1. Bilateral knee arthroscopy. 2. Right hip arthroscopy. 3. Lumbar surgery. SOCIAL HISTORY: Patient smoked for 40 years. Quit smoking 2 months ago. Reported drinking. Last drink was 3 months ago. Denies history of delirium tremens (DT). FAMILY HISTORY: Noncontributory. ALLERGIES: Hornets and SULFA DRUGS. REVIEW OF SYSTEMS: An 11-point review of systems negative except for those mentioned in the history of present illness (HPI). HOME MEDICATIONS: - acetaminophen/codeine 330 mg one tablet by mouth twice a day - ProAir two puffs inhalation four times a day as needed - DuoNeb four times a day as needed - Combivent inhalation four times a day - Xanax 1 mg by mouth twice a day as needed - Lipitor 20 mg by mouth at bedtime - Breo inhalation every morning - lidocaine patch transdermal daily as needed - Singulair 10 mg by mouth daily - nicotine patch 21 mg transdermal as needed - prednisone 10 mg by mouth three times a day PHYSICAL EXAMINATION: VITAL SIGNS: Blood pressure 116/84, pulse 114, respirations 16, temperature 100.3, pulse oximetry 95% on 4 liters nasal cannula. GENERAL: Patient alert and oriented times three in no acute distress. HEENT: Petechiae, facial and nasal abrasions. Right eye conjunctival hemorrhage. Bilateral chest wall base erythema and abrasion. Bilateral elbow erythema and abrasion. Bilateral knee abrasion. PULMONARY: Bilateral expiratory wheeze. Coarse breath sounds. CARDIAC: Mild tachycardia, regular. ABDOMEN: Soft, nontender, nondistended. Positive bowel sounds. EXTREMITIES: Able to move all four extremities. Bilateral elbow erythema and abrasions. Bilateral lower extremity erythema. Bilateral knee erythema and abrasion. Able to move bilateral upper and lower extremities. NEUROLOGIC: Strength: Upper and lower extremities bilaterally 5/5, symmetrical. Cranial nerves II-XII grossly intact. No focal deficits. ELECTROCARDIOGRAM: Sinus tachycardia at 112. No significant change from previous. LABORATORY DATA: WBC 12.9, hemoglobin and hematocrit 13.9/43.8, platelets 219. Chemistry: Sodium 146, potassium 4.7, chloride 104, bicarbonate 37, BUN 20, creatinine 1.5. Total CK 1428. Hip x-ray shows nondisplaced fracture of proximal right finger adjacent to the stump of the metallic prosthesis at that location. ASSESSMENT AND PLAN: This is a 66-year-old male patient with underlying medical history of advanced chronic obstructive pulmonary disease (COPD), oxygen and steroid dependent, emphysema, dyslipidemia, baseline ambulation with cane, admitted status post mechanical fall. As per patient, he slipped. With also encephalopathy and right nondisplaced femur fracture. 1. Fall with right nondisplaced femur fracture. Orthopedics, Dr. Pérez, consulted. Physical therapy and management as per Dr. Pérez. Pain regimen as prescribed. Once orthopedics is comfortable, will start physical therapy and also get orthostatic vital signs. Telemetry monitoring, cardiac enzymes, echocardiogram for possible syncope workup given patient is a poor historian. 2. Rhabdomyolysis, likely secondary to prolonged time on the floor. Intravenous (IV) fluids for hydration. Followup CKs. Monitor kidney function. Strict intake and output. 3. Acute kidney injury (BRETT), possibly secondary to rhabdomyolysis versus dehydration. IV fluids for hydration. Follow urine studies. Ultrasound, renal. IV fluids, urine studies. Strict intake and output. Follow BUN and creatinine. 4. System inflammatory response syndrome (SIRS). Patient with leukocytosis and tachycardia, possibly secondary to underlying COPD and pneumonia. Questionable community-acquired bacterial pneumonia. Patient on Rocephin and azithromycin. Followup CT scan. C-reactive protein elevated. Increase prednisone, steroids. Patient is steroid dependent. Will continue oxygen. Continue home medications. Advair has been added. Continue to monitor. 5. Deconditioning. Will start physical therapy once orthopedics comfortable. 6. Chronic hypoxia. Oxygen supplementation. Treatment for COPD as mentioned above. 7. Deep vein thrombosis (DVT) prophylaxis. Heparin subcutaneous. 8. Dyslipidemia. Continue statin. DISPOSITION PLANNING: Pending orthopedic consultation, physical therapy, clinical improvement. MTDD
[2016-08-25 17:15] VITALS: BP 123/72
[2016-08-25] MEDS: cefTRIAXone SOD 1 GM in D5W MINI-BAG PLUS 50 ML IV SCH (17:51)
[2016-08-25] MEDS: ADVAIR DISKUS 500/50 INH PWD INH SCH (19:33)
[2016-08-25 20:00] VITALS: BP 132/84
[2016-08-25] MEDS: **NOTE PATIENT COMMENT** MISC XX SCH (21:00)
[2016-08-25] MEDS: MONTELUKAST 10 MG TAB PO SCH (21:27)
[2016-08-25] MEDS: ATORVASTATIN 20 MG TAB PO SCH (21:27)
[2016-08-25] MEDS: HEPARIN SOD (PORCINE) 5000 UNITS/ML VIAL SC SCH (21:28)
[2016-08-25 23:59] VITALS: BP 118/72
[2016-08-26] VITALS (7 sets, daily range): BP systolic 98–146; BP diastolic 62–82
[2016-08-26] MEDS: IPRATROPIUM 0.5MG/ALBUTEROL 2.5MG INH SOL UD 3ML (DUONEB)(J7620) NEB SCH ×4 (00:08→23:08)
[2016-08-26 00:33] LABS: OSMOLALITY URINE 770 MOSM/KG (500-800)
--- NOTE | 2016-08-26 00:47 | REP ---
Clinical: Chest pain and dyspnea rule out pneumonia. Comparison: 12/15/2015. Findings: Moderate to early advanced COPD and emphysematous changes are appreciated along with right apical scarring and moderate bronchiectasis as well as bibasilar scarring. In comparison to prior examination there appears to be relatively new subtle nodular opacity in the apical segment left lower lobe (image 40) as well as along the periphery of the left lower lobe (image 69) with trace bibasilar atelectasis. No pleural effusion. No pneumothorax. Mediastinum demonstrates atherosclerotic changes to the thoracic aorta and coronary arteries without cardiomegaly or pericardial effusion and no evidence for aortic aneurysm. No obvious adenopathy. Multiple old healed bilateral rib fractures identified along with degenerative changes to the thoracic spine. Impression: 1. Chronic COPD and emphysematous changes with right apical and bibasilar scarring and bronchiectasis. 2. Small areas of relatively new nodular density in the apical segment left lower lobe and lateral aspect left lower lobe as well as trace bibasilar atelectasis warrant initial 3-month follow-up. Signed by Gregg Trotter MD 08/26/2016 12:38 A
[2016-08-26 00:54] LABS: CALCIUM OXALATE CRYSTALS SMALL
[2016-08-26] MEDS: LR 1,000 ML IV SCH ×2 (04:54→11:05)
[2016-08-26 05:21] LABS: MEAN CORPUSCULAR HEMOGLOBIN 31.3 pg (27.0-33.0); MEAN CORPUSCULAR HGB CONC 32.5 g/dl (32.0-36.5); MEAN CORPUSCULAR VOLUME 96.2 fl (80.0-96.0); WHITE BLOOD COUNT 11.5 K/mm3 (4.0-10.0)
[2016-08-26 05:34] LABS: ANION GAP 4 MEQ/L (8-16); BLOOD UREA NITROGEN 23 MG/DL (7-18); CALCIUM LEVEL 8.9 MG/DL (8.8-10.2); CARBON DIOXIDE LEVEL 37 MEQ/L (21-32); CHLORIDE LEVEL 102 MEQ/L (98-107); CREATININE FOR GFR 0.56 MG/DL (0.70-1.30); GLUCOSE, FASTING 124 MG/DL (80-110); MAGNESIUM LEVEL 1.9 MG/DL (1.8-2.4); POTASSIUM SERUM 4.2 MEQ/L (3.5-5.1); SODIUM LEVEL 143 MEQ/L (136-145)
[2016-08-26 05:36] LABS: GLOMERULAR FILTRATION RATE > 60.0 (>49)
[2016-08-26] MEDS: ADVAIR DISKUS 500/50 INH PWD INH SCH ×2 (07:30→20:53)
[2016-08-26] MEDS: predniSONE 20 MG TAB PO SCH (08:38)
[2016-08-26] MEDS: SENOKOT S TAB PO SCH ×2 (08:38→21:31)
[2016-08-26] MEDS: HEPARIN SOD (PORCINE) 5000 UNITS/ML VIAL SC SCH ×2 (08:38→21:31)
[2016-08-26] MEDS: NICOTINE 21MG/24HR 1 EA TRANSDERMAL TD SCH (08:38)
[2016-08-26] MEDS: PANTOPRAZOLE 40MG TAB (PROTONIX) PO SCH (08:39)
--- NOTE | 2016-08-26 09:40 | ECHO ---
DATE OF PROCEDURE: 08/25/2016 REFERRING PHYSICIAN: Dr. Ani Lind. HEIGHT: 183 cm WEIGHT: 79 kg. INDICATION: Syncope. DIMENSIONS: IVS: 1.2 LV: 4.4 LVPW: 1.2 LA: 3.8 Aorta: 3.8 FINDINGS: The study is of acceptable technical quality even though apical views are very limited. Left ventricle is normal size and systolic function based on fair views. I cannot rule out subtle wall motion abnormalities. Overall EF is though going to be in normal range. Mild LVH is noted. Right ventricle does not appear dilated. Both atria appear normal. There are mild degenerative abnormalities of aortic and mitral valves. Tricuspid valve appears normal. Pulmonic valve was not well seen. No pericardial effusion is noted. Inferior vena cava is normal size. Aortic root is normal. Aortic arch and abdominal aorta were not visualized. Doppler interrogation reveals no aortic stenosis or insufficiency. There is also no mitral stenosis or insufficiency. Trace tricuspid insufficiency was seen but quality of TR jet was not sufficient to adequately estimate pulmonary artery pressure. Pulmonic valve was poorly seen by color Doppler imaging. There is no significant stenosis or insufficiency. Mitral inflow pattern and tissue Doppler imaging of mitral annulus reveal grade 1 diastolic dysfunction. CONCLUSIONS: 1. Study is of acceptable technical quality. 2. Normal LV size with mild LVH and overall preserved LV systolic function. Based on technical limitations of the study, subtle wall motion abnormalities cannot be ruled out. 3. No hemodynamically significant valvular disease. 4. Normal central venous pressure. COMMENTS: Subacute bacterial endocarditis (SBE) prophylaxis is not recommended. Study does not provide any obvious findings to explain syncope.
[2016-08-26] MEDS: PERCOCET 5MG/325MG TAB PO PRN ×2 (13:14→18:04)
[2016-08-26] MEDS: ALPRAZolam 0.5 MG TAB PO PRN (13:26)
[2016-08-26] MEDS: predniSONE 10 MG TAB PO SCH ×2 (15:42→21:31)
[2016-08-26] MEDS: AZITHROMYCIN 500 MG, VIAL MATE ADAPTER 1 EACH in D5W 250 ML IV SCH (15:42)
[2016-08-26] MEDS: cefTRIAXone SOD 1 GM in D5W MINI-BAG PLUS 50 ML IV SCH (16:58)
--- NOTE | 2016-08-26 18:22 | IPN ---
DATE: 08/26/2016 Patient currently comfortable, in no acute distress, reporting much improved. Mental status back to baseline. Respiration also much improved. Denies any chest pain, pressure, or discomfort. Reported muscle aches from the trauma. VITAL SIGNS: Temperature 97, pulse 63, respirations 18, blood pressure 102/64. Pulse oximetry 94% on 4 liters nasal cannula. LABORATORY DATA: WBC 11.5, hemoglobin and hematocrit 12.1 over 37.1, platelets 140. Chemistry: Sodium 143, potassium 4.1, chloride 102, bicarbonate 37, BUN 23, creatinine 0.56, C-reactive protein 8.6, total CK 1569. PHYSICAL EXAMINATION: Patient alert and oriented times three, in no acute distress. HEENT: Petechia, facial nasal abrasion. Right conjunctival hemorrhage. Bilateral chest wall mild erythema, abrasion. Much improved. Bilateral elbow erythema and bruise, abrasion. Bilateral knee abrasion. Pulmonary: Bilateral expiratory wheeze, much improved. Coarse breath sounds. Cardiac: Regular rate and rhythm. Normal S1, S2. Abdomen: Soft, nontender, nondistended. Positive bowel sounds. Extremities: Able to move all four extremities. Right lower extremity slightly tender to movement. Bilateral lower extremity knee area with erythema and abrasion. Bilateral elbows - dressing clean, dry and intact. ASSESSMENT AND PLAN: This is a 66-year-old male patient with underlying medical history of advanced chronic obstructive pulmonary disease, oxygen and steroid dependent, emphysema, dyslipidemia, baseline ambulating with a cane, only one floor, admitted status post mechanical fall - as per patient, slipped, also with encephalopathy, rhabdomyolysis, nondisplaced right femur fracture. Problems: 1. Fall with nondisplaced right femur fracture. Orthopedics, Dr. Pérez, consulted. The patient sees Dr. Sheridan. As per orthopedics, protective weightbearing with walker. Physical therapy as ordered. The patient will need to followup with Dr. Sheridan in 5-7 days per orthopedics. Pain regimen as prescribed. Telemetry, cardiac enzymes, orthostatic vital signs, echocardiogram. 2. Rhabdomyolysis. Likely secondary to prolonged time on the floor. IV fluids. Followup CK, followup kidney function, strict intake and output. 3. Acute kidney injury (BRETT) secondary to rhabdomyolysis and dehydration. IV fluids have been given. Patient currently returned to baseline. Followup BUN and creatinine. 4. Leukocytosis and tachycardia. Likely secondary to COPD and pneumonia. Questionable community-acquired bacterial pneumonia. Continue antibiotics Rocephin and Zithromax. CT scan appreciated. C-reactive protein elevated. Prednisone tapered to baseline prednisone dose. Patient is steroid and oxygen dependent. Followup cultures. Continue home medication. Advair has been added. 5. Deconditioning. Physical therapy. Weightbearing as per orthopedics. 6. Chronic hypoxia. Oxygen supplementation. Treatment for COPD as above. 7. Dyslipidemia. Continue statin. 8. Deep vein thrombosis (DVT) prophylaxis. Heparin subcu. DISPOSITION PLANNING: Pending physical therapy. Patient needs outpatient followup with orthopedics in 5-7 days. MTDD
[2016-08-26] MEDS: **NOTE PATIENT COMMENT** MISC XX SCH (21:00)
[2016-08-26] MEDS: MONTELUKAST 10 MG TAB PO SCH (21:31)
[2016-08-26] MEDS: ATORVASTATIN 20 MG TAB PO SCH (21:31)
--- NOTE | 2016-08-27 02:05 | CR ---
DATE OF CONSULTATION: 08/26/2016 CHIEF COMPLAINT: Asked to the patient after a fall/question of right hip fracture. HISTORY OF PRESENT ILLNESS: 66-year-old gentleman with COPD, emphysema, steroid dependent who slipped and fell on the floor at home. He was appreciated to have scrapes and bruises and was confused and brought to the emergency room for further evaluation. While in the emergency room a number of imaging studies were obtained including imaging studies of the right hip which reflected a nondisplaced fracture on the frog lateral at the anterior aspect of the hip approximately 130 mm from the tip of the prosthesis. The fracture is subtle, but I think it exists. This is not appreciated on the AP view. 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 He is a patient of Dr. Sheridan's in our office. He has had a hip replacement as well as a hip revision with a polyethylene liner in the past. MEDICAL HISTORY: Includes severe COPD, emphysema, oxygen and steroid dependent and dyslipidemia. PAST SURGICAL HISTORY: Includes bilateral knee arthroplasties, right hip replacement and some type level of low back surgery. SOCIAL HISTORY: He quit smoking after 40 years of smoking. Smoking cessation was initiated two months ago. Does not drink every day. FAMILY HISTORY: Not contributory. ALLERGIES: Allergies to medications includes SULFA DRUGS. REVIEW OF SYSTEMS: He is not complaining of any hip pain or any other discomfort at this point. He is not complaining of numbness, tingling, shortness of breath, headache, chest pain, abdominal pain, endocrine trouble. He feels his respiratory issues are near their baseline. MEDICATIONS AT HOME: Include Tylenol with Codeine, ProAir, DuoNeb, Combivent, Xanax, Lipitor, BREO inhaler, lidocaine patches, Singulair, nicotine patches, prednisone. IMAGING STUDIES: As above with what maybe a nondisplaced fracture of the anterior aspect of the intertrochanteric/subtrochanteric region of the right femur and what appears to be a well-fixed AML femoral prosthetic. CLINICAL EXAMINATION: He is alert, oriented, cooperative and mood and affect seem to be appropriate. Normocephalic, atraumatic except for an excoriation or abrasion across the bridge of his nose which is not actively bleeding. He is not short of breath, talks in complete sentences and he is sitting at the bedside having breakfast. He is denying any pain whatsoever in the right hip. Healthy skin of upper and lower extremities. No peripheral edema. IMPRESSION: Unwitnessed fall at home, 66-year-old male with COPD. Right hip appears to have a nondisplaced fracture in the peritrochanteric region appreciated on one single view. RECOMMENDATIONS: 1. Recommend medical stabilization and evaluation for the syncopal episode. 2. With respect to the hip, I think that he should engage in protected weightbearing using a walker and follow up with Dr. Sheridan in the next 5-10 days. This was explained to the patient. He is comfortable with our plan.
[2016-08-27] MEDS: IPRATROPIUM 0.5MG/ALBUTEROL 2.5MG INH SOL UD 3ML (DUONEB)(J7620) NEB PRN ×2 (02:57→23:02)
[2016-08-27 04:29] VITALS: BP 116/71
[2016-08-27 05:47] LABS: MEAN CORPUSCULAR HEMOGLOBIN 30.6 pg (27.0-33.0); MEAN CORPUSCULAR HGB CONC 31.7 g/dl (32.0-36.5); MEAN CORPUSCULAR VOLUME 96.6 fl (80.0-96.0); RED CELL DISTRIBUTION WIDTH 13.8 % (11.5-14.5); WHITE BLOOD COUNT 7.9 K/mm3 (4.0-10.0)
[2016-08-27] MEDS: LR 1,000 ML IV SCH (06:07)
[2016-08-27 06:12] LABS: ANION GAP 3 MEQ/L (8-16); BLOOD UREA NITROGEN 18 MG/DL (7-18); CALCIUM LEVEL 8.7 MG/DL (8.8-10.2); CARBON DIOXIDE LEVEL 39 MEQ/L (21-32); CHLORIDE LEVEL 102 MEQ/L (98-107); CREATININE FOR GFR 0.49 MG/DL (0.70-1.30); GLOMERULAR FILTRATION RATE > 60.0 (>49); GLUCOSE, FASTING 125 MG/DL (80-110); MAGNESIUM LEVEL 1.7 MG/DL (1.8-2.4); POTASSIUM SERUM 4.3 MEQ/L (3.5-5.1); SODIUM LEVEL 144 MEQ/L (136-145)
[2016-08-27] MEDS: IPRATROPIUM 0.5MG/ALBUTEROL 2.5MG INH SOL UD 3ML (DUONEB)(J7620) NEB SCH ×3 (07:29→19:23)
[2016-08-27] MEDS: ADVAIR DISKUS 500/50 INH PWD INH SCH ×2 (07:29→19:24)
[2016-08-27 08:00] VITALS: BP 115/78
[2016-08-27] MEDS: SENOKOT S TAB PO SCH ×2 (08:10→20:27)
[2016-08-27] MEDS: PERCOCET 5MG/325MG TAB PO PRN ×3 (08:10→22:36)
[2016-08-27] MEDS: predniSONE 10 MG TAB PO SCH ×3 (08:10→20:27)
[2016-08-27] MEDS: PANTOPRAZOLE 40MG TAB (PROTONIX) PO SCH (08:10)
[2016-08-27] MEDS: HEPARIN SOD (PORCINE) 5000 UNITS/ML VIAL SC SCH ×2 (08:11→20:27)
[2016-08-27] MEDS: NICOTINE 21MG/24HR 1 EA TRANSDERMAL TD SCH (08:11)
[2016-08-27] MEDS: ALPRAZolam 0.5 MG TAB PO PRN (08:14)
[2016-08-27] MEDS ORDERED: MAG SULF 1GM/100ML (MAG RUN) 1 GM in APPROPRIATE DILUENT 1 EA IV ONE (10:00)
[2016-08-27] MEDS ORDERED: IBUPROFEN 200 MG TAB PO PRN (10:00)
[2016-08-27] MEDS ORDERED: MORPHINE 2 MG/ML 1ML SYRINGE IV PRN (10:00)
[2016-08-27 12:00] VITALS: BP 117/59
[2016-08-27] MEDS ORDERED: NICOTINE 14 MG/24 HR TRANSDERMAL TD ONE (13:00)
[2016-08-27 14:00] VITALS: BP 122/68
--- NOTE | 2016-08-27 14:51 | ECGEPIP ---
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
--- NOTE | 2016-08-27 15:55 | EDDOCDS ---
Physician Documentation [facility] Name: Zack Charles Age: 66 yrs Sex: Male : 1950 Arrival Date: 08/25/2016 Time: 05:58 Bed Ultrasound Private MD: Maria Sebastian DO Disposition: 08/25/16 11:02 Hospitalization ordered by Ani Lind for Inpatient Admission. Preliminary diagnosis are Altered mental status, unspecified, Fall (on) (from) unspecified stairs and steps, Pain in elbow. - Bed requested for PCU. - Status is Inpatient Admission. ck1 - Condition is Stable. - Problem is new. - Symptoms have improved. Historical: - Allergies: Hornets; SULFA (SULFONAMIDES); - Home Meds: 1. alprazolam 1 mg Oral Tb24 1 tab twice a day 2. atorvastatin 20 mg oral tab 1 tab once daily 3. montelukast 10 mg oral tab 1 tab nightly 4. prednisone 10 mg Oral tab 1 tab 3 times per day 5. albuterol sulfate 2.5 mg /3 mL (0.083 %) Inhl nebu 6. pro air- HFA 90mcg daily 7. Breo Ellipta 100-25 mcg/dose inhalation dsdv 8. Combivent 18-103 mcg/actuation Inhl aero 2 puffs 4 times per day 9. Lidoderm 5 % Topical ptmd as needed 10. Oxygen 2-3L - PMHx: COPD; Emphysema; Hypercholesterolemia; - PSHx: Knee Arthroplasty, Left; Hip Arthroplasty, Right; Knee Arthroplasty, Right; lumbar surgery; - Social history: Smoking status: Patient states former smoker of tobacco. No barriers to communication noted, The patient speaks fluent Kazakh, Speaks appropriately for age. - Family history: Not pertinent. - : The pt / caregiver states he / she is not on anticoagulants. Home medication list is obtained from the patient, family members. - Exposure Risk Screening:: None identified. Vital Signs: 08/25 06:12 BP 106 / 69 (auto/); mlb1 06:13 BP 106 / 69; Pulse 123; Resp 16; Pulse Ox 95% on 13% Venturi mask; Weight 79.38 kg / sew 175 lbs; Height 6 ft. 0 in. (182.88 cm); 06:13 Pulse 124 MON; mlb1 06:15 BP 109 / 72 (auto/); mlb1 06:16 Pulse 124 MON; Pulse Ox 95% ; mlb1 06:30 BP 106 / 62 (auto/); mlb1 06:30 Pulse 122 MON; Pulse Ox 95% ; mlb1 06:45 BP 134 / 79 (auto/); mlb1 06:45 Pulse 122 MON; Pulse Ox 86% ; mlb1 06:59 Temp 100.3(A); kas2 07:00 BP 115 / 65 (auto/); mlb1 07:01 Pulse 116 MON; Pulse Ox 94% ; mlb1 07:15 BP 100 / 58 (auto/); mlb1 07:16 Pulse 119 MON; mlb1 07:30 BP 104 / 84 (auto/); mlb1 07:31 Pulse 114 MON; Pulse Ox 94% ; mlb1 07:45 BP 116 / 11 (auto/); mlb1 07:48 Pulse 109 MON; mlb1 08:00 BP 102 / 68 (auto/); mlb1 08:00 Pulse 108 MON; Pulse Ox 92% ; mlb1 08:15 BP 124 / 72 (auto/); mlb1 08:16 Pulse 107 MON; Pulse Ox 92% ; mlb1 08:30 BP 125 / 82 (auto/); mlb1 08:31 Pulse 110 MON; Pulse Ox 95% ; mlb1 08:45 BP 134 / 75 (auto/); mlb1 08:46 Pulse 111 MON; Pulse Ox 97% ; mlb1 09:04 BP 132 / 82 (auto/); mlb1 09:05 Pulse 107 MON; mlb1 09:19 BP 130 / 91 (auto/); mlb1 09:20 Pulse 103 MON; Pulse Ox 94% ; mlb1 09:34 BP 132 / 69 (auto/); mlb1 09:35 Pulse 108 MON; Pulse Ox 93% ; mlb1 09:49 BP 118 / 75 (auto/); mlb1 09:50 Pulse 104 MON; mlb1 10:04 BP 149 / 88 (auto/); mlb1 10:05 Pulse 105 MON; mlb1 10:25 BP 111 / 61 (auto/); mlb1 10:26 Pulse 103 MON; Pulse Ox 96% ; mlb1 10:27 BP 111 / 61; Pulse 103; Resp 16; Pulse Ox 97% on 3 lpm NC; Pain 6/10; mlb1 10:34 BP 123 / 73 (auto/); mlb1 10:35 Pulse 102 MON; Pulse Ox 94% ; mlb1 10:49 BP 129 / 69 (auto/); mlb1 10:50 Pulse 94 MON; Pulse Ox 91% ; mlb1 11:04 BP 129 / 60 (auto/); mlb1 11:05 Pulse 101 MON; Pulse Ox 94% ; mlb1 11:19 BP 125 / 66 (auto/); mlb1 11:20 Pulse 92 MON; Pulse Ox 92% ; mlb1 11:34 BP 121 / 83 (auto/); mlb1 11:35 Pulse 95 MON; mlb1 11:49 BP 118 / 72 (auto/); mlb1 11:50 Pulse 98 MON; mlb1 11:59 BP 116 / 75 (auto/); mlb1 12:00 Pulse 96 MON; Pulse Ox 97% ; mlb1 12:04 BP 132 / 84 (auto/); mlb1 12:05 Pulse 94 MON; Pulse Ox 98% ; mlb1 12:19 BP 130 / 85 (auto/); mlb1 12:20 Pulse 93 MON; Pulse Ox 96% ; mlb1 12:34 BP 136 / 67 (auto/); mlb1 12:34 Pulse 95 MON; Pulse Ox 96% ; mlb1 14:50 BP 117 / 73; Pulse 100; Resp 20; Temp 98.5; Pulse Ox 94% ; jlf 06:13 Body Mass Index 23.73 (79.38 kg, 182.88 cm) sew MDM: 06:12 Call Respiratory ordered. kas2 06:13 -Arterial Blood Gas Ordered. EDMS 06:13 Call Respiratory complete. sew 06:24 ECG WITH READING ER PHYS+CARDIAG ordered. EDMS 06:31 Albuterol-Ipratropium 3 ml Inhalation once ordered. nn1 06:46 amiodarone 150 mg IVP once; infuse at 1.5 mg/hr ordered. kas2 06:58 -Blood Culture (Adults Only), peripheral from different site, or from device/port/PICC cs11 etc. if present ordered. 06:58 CT Head Without Contrast Ordered. EDMS 06:59 Chest, 1 View Ordered. EDMS 06:59 -Blood Culture Ordered. EDMS 06:59 Lactic Acid (Ross tube on ice) Ordered. EDMS 06:59 CBC with Diff Ordered. EDMS 06:59 MED Profile Ordered. EDMS 06:59 Liver Profile Ordered. EDMS 07:02 -Blood Culture (Adults Only), peripheral from different site, or from device/port/PICC jrd etc. if present complete. 07:03 BLOOD CULTURES Ordered. EDMS 07:11 CT Maxilofacial W/out Contrast Ordered. EDMS 08:30 Financial registration complete. mm15 08:34 Elbow, (AP\E\Lat) Ordered. EDMS 08:45 [facility] [place] was scanned into Log[employer] and attached to record. mm15 09:55 morphine 2 mg IVP once ordered. fg 12:43 CARDIAC MARKER PANEL Ordered. EDMS 12:43 CARDIAC MARKER PANEL Ordered. EDMS 12:43 C REACTIVE PROTEIN QUANTITATIV Ordered. EDMS 12:44 URINALYSIS Ordered. EDMS 12:44 OSMOLALITY,URINE Ordered. EDMS 12:44 SODIUM,RANDOM URINE Ordered. EDMS 12:44 POTASSIUM,RANDOM URINE Ordered. EDMS 12:44 CHLORIDE,RANDOM URINE Ordered. EDMS 12:44 TOTAL PROTEIN,RANDOM URINE Ordered. EDMS 12:44 CREATININE,RANDOM URINE Ordered. EDMS 12:44 RENAL US Ordered. EDMS 12:45 Knee, complete Ordered. EDMS 12:45 HIPS BILAT W-AP PELVIS Ordered. EDMS 12:45 ECHOCARD,DOPPLER/COLOR FLOW ordered. EDMS 12:45 CT Chest without contrast Ordered. EDMS 12:47 PHYSICAL THERAPY EVAL & TREAT ordered. EDMS 12:48 Admission / Observation Status ordered. EDMS 12:48 ELECTROCARDIOGRAM ADULT ordered. EDMS 12:48 REGULAR DIET ordered. EDMS 08/26 07:50 T-Sheet-- Draft Copy was scanned into LogLogic and attached to record. gb 12:42 ECG/EKG was scanned into LogLog[employer] and attached to record. gb 12:42 Trend VS was scanned into LogLog[employer] and attached to record. gb Administered Medications: 08/25 06:37 Drug: Albuterol-Ipratropium 3 ml [ipratropium-albuterol 0.5 mg-3 mg(2.5 mg base)/3 mL dk nebulization soln (3 mL)] Route: Inhalation; 06:46 Drug: amiodarone 150 mg [amiodarone 150 mg/100 mL (1.5 mg/mL) in dextrose, iso-osmotic kas2 IV (100 mL)] Route: IVP; Site: right antecubital; 10:10 Drug: morphine 2 mg [morphine 2 mg/mL intravenous cartridge (1 mL)] Route: IVP; Site: mlb1 right antecubital; 10:27 Follow up: BP 111 / 61; Pulse 103 bpm; Resp 16 bpm; Pulse Ox 97% 3 lpm Nasal Cannula; mlb1 Pain 6/10 Adult Signatures: Dispatcher Med[employer] EDMS Sheree Muhammad, Reg Reg gb Los Velazquez RN RN mlb1 Chelsea MtzRN RN ck1 Crissy Fritz Craig, DO cs11 Sachin Velasquez mm15 Bahman Caban, TRANSFER ENGINEER TRANSFER ENGINEER Rachel DavisRN RN nn1 Malaika Contreras MD MD fg Smith, Kim, RN RN kas2 Cheryl Almaguer RT ting The chart was reviewed and I authenticate all verbal orders and agree with the evaluation and treatment provided.Attachments: 08:45 [facility] Payment Agreement mm15 08/26 07:50 T-Sheet-- Draft Copy gb 12:42 ECG/EKG gb Chart Complete MTDD
--- NOTE | 2016-08-27 15:55 | EDDOCDS ---
Physician Documentation [facility] Name: Zack Charles Age: 66 yrs Sex: Male : 1950 Arrival Date: 08/25/2016 Time: 05:58 Bed Ultrasound Private MD: Maria Sebastian DO Disposition: 08/25/16 11:02 Hospitalization ordered by Ani Lind for Inpatient Admission. Preliminary diagnosis are Altered mental status, unspecified, Fall (on) (from) unspecified stairs and steps, Pain in elbow. - Bed requested for PCU. - Status is Inpatient Admission. ck1 - Condition is Stable. - Problem is new. - Symptoms have improved. Historical: - Allergies: Hornets; SULFA (SULFONAMIDES); - Home Meds: 1. alprazolam 1 mg Oral Tb24 1 tab twice a day 2. atorvastatin 20 mg oral tab 1 tab once daily 3. montelukast 10 mg oral tab 1 tab nightly 4. prednisone 10 mg Oral tab 1 tab 3 times per day 5. albuterol sulfate 2.5 mg /3 mL (0.083 %) Inhl nebu 6. pro air- HFA 90mcg daily 7. Breo Ellipta 100-25 mcg/dose inhalation dsdv 8. Combivent 18-103 mcg/actuation Inhl aero 2 puffs 4 times per day 9. Lidoderm 5 % Topical ptmd as needed 10. Oxygen 2-3L - PMHx: COPD; Emphysema; Hypercholesterolemia; - PSHx: Knee Arthroplasty, Left; Hip Arthroplasty, Right; Knee Arthroplasty, Right; lumbar surgery; - Social history: Smoking status: Patient states former smoker of tobacco. No barriers to communication noted, The patient speaks fluent Kinyarwanda, Speaks appropriately for age. - Family history: Not pertinent. - : The pt / caregiver states he / she is not on anticoagulants. Home medication list is obtained from the patient, family members. - Exposure Risk Screening:: None identified. Vital Signs: 08/25 06:12 BP 106 / 69 (auto/); mlb1 06:13 BP 106 / 69; Pulse 123; Resp 16; Pulse Ox 95% on 13% Venturi mask; Weight 79.38 kg / sew 175 lbs; Height 6 ft. 0 in. (182.88 cm); 06:13 Pulse 124 MON; mlb1 06:15 BP 109 / 72 (auto/); mlb1 06:16 Pulse 124 MON; Pulse Ox 95% ; mlb1 06:30 BP 106 / 62 (auto/); mlb1 06:30 Pulse 122 MON; Pulse Ox 95% ; mlb1 06:45 BP 134 / 79 (auto/); mlb1 06:45 Pulse 122 MON; Pulse Ox 86% ; mlb1 06:59 Temp 100.3(A); kas2 07:00 BP 115 / 65 (auto/); mlb1 07:01 Pulse 116 MON; Pulse Ox 94% ; mlb1 07:15 BP 100 / 58 (auto/); mlb1 07:16 Pulse 119 MON; mlb1 07:30 BP 104 / 84 (auto/); mlb1 07:31 Pulse 114 MON; Pulse Ox 94% ; mlb1 07:45 BP 116 / 11 (auto/); mlb1 07:48 Pulse 109 MON; mlb1 08:00 BP 102 / 68 (auto/); mlb1 08:00 Pulse 108 MON; Pulse Ox 92% ; mlb1 08:15 BP 124 / 72 (auto/); mlb1 08:16 Pulse 107 MON; Pulse Ox 92% ; mlb1 08:30 BP 125 / 82 (auto/); mlb1 08:31 Pulse 110 MON; Pulse Ox 95% ; mlb1 08:45 BP 134 / 75 (auto/); mlb1 08:46 Pulse 111 MON; Pulse Ox 97% ; mlb1 09:04 BP 132 / 82 (auto/); mlb1 09:05 Pulse 107 MON; mlb1 09:19 BP 130 / 91 (auto/); mlb1 09:20 Pulse 103 MON; Pulse Ox 94% ; mlb1 09:34 BP 132 / 69 (auto/); mlb1 09:35 Pulse 108 MON; Pulse Ox 93% ; mlb1 09:49 BP 118 / 75 (auto/); mlb1 09:50 Pulse 104 MON; mlb1 10:04 BP 149 / 88 (auto/); mlb1 10:05 Pulse 105 MON; mlb1 10:25 BP 111 / 61 (auto/); mlb1 10:26 Pulse 103 MON; Pulse Ox 96% ; mlb1 10:27 BP 111 / 61; Pulse 103; Resp 16; Pulse Ox 97% on 3 lpm NC; Pain 6/10; mlb1 10:34 BP 123 / 73 (auto/); mlb1 10:35 Pulse 102 MON; Pulse Ox 94% ; mlb1 10:49 BP 129 / 69 (auto/); mlb1 10:50 Pulse 94 MON; Pulse Ox 91% ; mlb1 11:04 BP 129 / 60 (auto/); mlb1 11:05 Pulse 101 MON; Pulse Ox 94% ; mlb1 11:19 BP 125 / 66 (auto/); mlb1 11:20 Pulse 92 MON; Pulse Ox 92% ; mlb1 11:34 BP 121 / 83 (auto/); mlb1 11:35 Pulse 95 MON; mlb1 11:49 BP 118 / 72 (auto/); mlb1 11:50 Pulse 98 MON; mlb1 11:59 BP 116 / 75 (auto/); mlb1 12:00 Pulse 96 MON; Pulse Ox 97% ; mlb1 12:04 BP 132 / 84 (auto/); mlb1 12:05 Pulse 94 MON; Pulse Ox 98% ; mlb1 12:19 BP 130 / 85 (auto/); mlb1 12:20 Pulse 93 MON; Pulse Ox 96% ; mlb1 12:34 BP 136 / 67 (auto/); mlb1 12:34 Pulse 95 MON; Pulse Ox 96% ; mlb1 14:50 BP 117 / 73; Pulse 100; Resp 20; Temp 98.5; Pulse Ox 94% ; jlf 06:13 Body Mass Index 23.73 (79.38 kg, 182.88 cm) sew MDM: 06:12 Call Respiratory ordered. kas2 06:13 -Arterial Blood Gas Ordered. EDMS 06:13 Call Respiratory complete. sew 06:24 ECG WITH READING ER PHYS+CARDIAG ordered. EDMS 06:31 Albuterol-Ipratropium 3 ml Inhalation once ordered. nn1 06:46 amiodarone 150 mg IVP once; infuse at 1.5 mg/hr ordered. kas2 06:58 -Blood Culture (Adults Only), peripheral from different site, or from device/port/PICC cs11 etc. if present ordered. 06:58 CT Head Without Contrast Ordered. EDMS 06:59 Chest, 1 View Ordered. EDMS 06:59 -Blood Culture Ordered. EDMS 06:59 Lactic Acid (Ross tube on ice) Ordered. EDMS 06:59 CBC with Diff Ordered. EDMS 06:59 MED Profile Ordered. EDMS 06:59 Liver Profile Ordered. EDMS 07:02 -Blood Culture (Adults Only), peripheral from different site, or from device/port/PICC jrd etc. if present complete. 07:03 BLOOD CULTURES Ordered. EDMS 07:11 CT Maxilofacial W/out Contrast Ordered. EDMS 08:30 Financial registration complete. mm15 08:34 Elbow, (AP\E\Lat) Ordered. EDMS 08:45 [facility] [place] Payment Agreement was scanned into [employer] and attached to record. mm15 09:55 morphine 2 mg IVP once ordered. fg 12:43 CARDIAC MARKER PANEL Ordered. EDMS 12:43 CARDIAC MARKER PANEL Ordered. EDMS 12:43 C REACTIVE PROTEIN QUANTITATIV Ordered. EDMS 12:44 URINALYSIS Ordered. EDMS 12:44 OSMOLALITY,URINE Ordered. EDMS 12:44 SODIUM,RANDOM URINE Ordered. EDMS 12:44 POTASSIUM,RANDOM URINE Ordered. EDMS 12:44 CHLORIDE,RANDOM URINE Ordered. EDMS 12:44 TOTAL PROTEIN,RANDOM URINE Ordered. EDMS 12:44 CREATININE,RANDOM URINE Ordered. EDMS 12:44 RENAL US Ordered. EDMS 12:45 Knee, complete Ordered. EDMS 12:45 HIPS BILAT W-AP PELVIS Ordered. EDMS 12:45 ECHOCARD,DOPPLER/COLOR FLOW ordered. EDMS 12:45 CT Chest without contrast Ordered. EDMS 12:47 PHYSICAL THERAPY EVAL & TREAT ordered. EDMS 12:48 Admission / Observation Status ordered. EDMS 12:48 ELECTROCARDIOGRAM ADULT ordered. EDMS 12:48 REGULAR DIET ordered. EDMS 08/26 07:50 T-Sheet-- Draft Copy was scanned into [employer] and attached to record. gb 12:42 ECG/EKG was scanned into [employer] and attached to record. gb 12:42 Trend VS was scanned into [employer] and attached to record. gb Administered Medications: 08/25 06:37 Drug: Albuterol-Ipratropium 3 ml [ipratropium-albuterol 0.5 mg-3 mg(2.5 mg base)/3 mL dk nebulization soln (3 mL)] Route: Inhalation; 06:46 Drug: amiodarone 150 mg [amiodarone 150 mg/100 mL (1.5 mg/mL) in dextrose, iso-osmotic kas2 IV (100 mL)] Route: IVP; Site: right antecubital; 10:10 Drug: morphine 2 mg [morphine 2 mg/mL intravenous cartridge (1 mL)] Route: IVP; Site: mlb1 right antecubital; 10:27 Follow up: BP 111 / 61; Pulse 103 bpm; Resp 16 bpm; Pulse Ox 97% 3 lpm Nasal Cannula; mlb1 Pain 6/10 Adult Signatures: Dispatcher [employer] EDMS Sheree Muhammad, Reg Reg gb Los Velazquez RN RN mlb1 Chelsea MtzRN RN ck1 Crissy Fritz Craig, DO cs11 Sachin Velasquez mm15 Bahman Caban, PULP PRESS TENDER PULP PRESS TENDER Rachel DavisRN RN nn1 Malaika Contreras MD MD fg Smith, Kim, RN RN kas2 Cheryl Almaguer RT ting The chart was reviewed and I authenticate all verbal orders and agree with the evaluation and treatment provided.Attachments: 08:45 [facility] Payment Agreement mm15 08/26 07:50 T-Sheet-- Draft Copy gb 12:42 ECG/EKG gb Chart Complete MTDD
--- NOTE | 2016-08-27 15:55 | EDDOCDS ---
Nurse's Notes [facility] Name: Dipak Villasenor Age: 66 yrs Sex: Male : 1950 Arrival Date: 08/25/2016 Time: 05:58 Bed Ultrasound Private MD: Maria Sebastian DO Diagnosis: Altered mental status, unspecified;Fall (on) (from) unspecified stairs and steps;Pain in elbow Presentation: 08/25 06:00 Presenting complaint:. kas2 06:08 Presenting complaint: EMS states: went to bed at 2200, patient was in his chair at nn1 that time. woke up at 0530, found patient on the floor. Unknown down time. Patient had altered mental status at that time. Suicide/Homicide risk assessment- the patient denies having any suicidal and/or homicidal ideations and does not present with any other emotional, behavioral or mental health complaints. 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 Transition of care: patient was not received from another setting of care. 06:08 Acuity: MAE Level 3 nn1 06:08 Method Of Arrival: Ambulance nn1 06:47 Adult Sepsis Screening: Patient has new or worsening altered mentation (1 point). kas2 Patient's respiratory rate is less than 22. Systolic blood pressure is greater than 100. Patient has a qSOFA score of 1- Negative Sepsis Screen. Triage Assessment: 06:18 General: Appears distressed, uncomfortable, unkempt, Behavior is drowsy, restless. kas2 Pain: Location: right elbow and left elbow Pain currently is 7 out of 10 on a pain scale. Neurological: Level of Consciousness is awake, alert, confused, obeys commands, Oriented to person, place, Road Maker are equal bilaterally Speech garbled at times. Facial symmetry appears normal, Pupils are irregular, left pupil 4mm and right pupil is 2mm. Cardiovascular: Capillary refill < 3 seconds Heart tones S1 S2 present Rhythm is. 06:32 Respiratory: Airway is patent Respiratory effort is even, unlabored, Respiratory kas2 pattern is regular, symmetrical, Breath sounds are clear Breath sounds are diminished bilaterally. GI: Abdomen is distended, Bowel sounds present X 4 quads. Abd is soft X 4 quads Abd is non tender X 4 quads. Derm: Skin is moist, Skin is flushed, Skin temperature is warm Rash noted that is on raised red rash burn along mid section of abdomen. 06:43 Injury Description: Laceration sustained to bridge of nose. kas2 Historical: - Allergies: Hornets; SULFA (SULFONAMIDES); - Home Meds: 1. alprazolam 1 mg Oral Tb24 1 tab twice a day 2. atorvastatin 20 mg oral tab 1 tab once daily 3. montelukast 10 mg oral tab 1 tab nightly 4. prednisone 10 mg Oral tab 1 tab 3 times per day 5. albuterol sulfate 2.5 mg /3 mL (0.083 %) Inhl nebu 6. pro air- HFA 90mcg daily 7. Breo Ellipta 100-25 mcg/dose inhalation dsdv 8. Combivent 18-103 mcg/actuation Inhl aero 2 puffs 4 times per day 9. Lidoderm 5 % Topical ptmd as needed 10. Oxygen 2-3L - PMHx: COPD; Emphysema; Hypercholesterolemia; - PSHx: Knee Arthroplasty, Left; Hip Arthroplasty, Right; Knee Arthroplasty, Right; lumbar surgery; - Social history: Smoking status: Patient states former smoker of tobacco. No barriers to communication noted, The patient speaks fluent Togolese, Speaks appropriately for age. - Family history: Not pertinent. - : The pt / caregiver states he / she is not on anticoagulants. Home medication list is obtained from the patient, family members. - Exposure Risk Screening:: None identified. Screenin:49 Screening information is obtained from family members. Fall risk: At risk due to age, kas2 injury. Assistance ADL's: requires no assistance with activities of daily living. Abuse/DV Screen: The patient / caregiver reports he/she is: Unable to Assess. Nutritional screening: No deficits noted. Advance Directives: Unable to assess Advance Directive status due to pt condition. home support is adequate. Assessment: 06:10 General: Patients heart rate showing bigeminy on monitor and ECG done and shows the kas2 same. Dr. Lorenzo aware.. 06:48 General: See triage note.. kas2 06:49 General: Patient has a laceration on the bridge of his nose and a laceration on each kas2 elbow left and right. Bleeding controlled. Patient remains confused with garbled speech at times. Alert and awake and oriented to person and place. Family at bedside.. 07:22 General: Appears Behavior is cooperative, pleasant. Pain: Location: bilateral knees and mlb1 elbows Pain currently is 7 out of 10 on a pain scale. Respiratory: Airway is patent Respiratory effort is even, unlabored. Injury Description: Bruise multiple bruises to elbows and knees laceration to bridge of nose scabbed swelling to bilateral eyes. 08:21 General: Appears in no apparent distress, to be sleeping. Respiratory: Airway is patent mlb1 Respiratory effort is even, unlabored. 09:16 General: Appears in no apparent distress, Behavior is cooperative, pleasant. Pain: mlb1 Location: bilateral knees and elbows Pain currently is 7 out of 10 on a pain scale. Neurological: Level of Consciousness is awake, alert, Oriented to person, place, time, Speech garbled. Respiratory: Airway is patent Respiratory effort is even, unlabored. 10:27 General: Appears in no apparent distress, Behavior is appropriate for age, cooperative. mlb1 Pain: Location: bilateral knees, and elbows Pain currently is 6 out of 10 on a pain scale. Neurological: Level of Consciousness is awake, alert, Oriented to person, place, time. 11:30 General: Appears in no apparent distress, comfortable, Behavior is appropriate for age, mlb1 cooperative. Pain: Location: bilateral knees and elbows Pain currently is 5 out of 10 on a pain scale. Neurological: Level of Consciousness is awake, alert, Oriented to person, place, time, Moves all extremities. Full function Speech garbled. 12:30 General: Appears in no apparent distress, comfortable, Behavior is appropriate for age, mlb1 cooperative. Pain: Location: bilateral knees and elbows Pain currently is 5 out of 10 on a pain scale. Neurological: Level of Consciousness is awake, alert, Oriented to person, place, time. Respiratory: No deficits noted. 13:24 General: Appears in no apparent distress, comfortable, Behavior is appropriate for age, mlb1 cooperative. Pain: Location: bilaral knee and elbows Pain currently is 5 out of 10 on a pain scale. Neurological: Level of Consciousness is awake, alert, Oriented to person, place, time, Moves all extremities. Full function Speech garbled. Respiratory: Airway is patent Respiratory effort is even, unlabored. 14:52 General: Appears in no apparent distress, comfortable, Behavior is appropriate for age, ck1 cooperative. Pain: Location: bridge of nose Noted to be quiet/stoic. Neurological: Level of Consciousness is awake, alert, Oriented to person, place, time. Cardiovascular: Rhythm is irregular. Respiratory: Respiratory effort is unlabored, Respiratory pattern is regular. GI: No deficits noted. Musculoskeletal: Circulation, motion, and sensation intact Range of motion intact in all extremities. Vital Signs: 06:12 BP 106 / 69 (auto/); mlb1 06:13 BP 106 / 69; Pulse 123; Resp 16; Pulse Ox 95% on 13% Venturi mask; Weight 79.38 kg; sew Height 6 ft. 0 in. (182.88 cm); 06:13 Pulse 124 MON; mlb1 06:15 BP 109 / 72 (auto/); mlb1 06:16 Pulse 124 MON; Pulse Ox 95% ; mlb1 06:30 BP 106 / 62 (auto/); mlb1 06:30 Pulse 122 MON; Pulse Ox 95% ; mlb1 06:45 BP 134 / 79 (auto/); mlb1 06:45 Pulse 122 MON; Pulse Ox 86% ; mlb1 06:59 Temp 100.3(A); kas2 07:00 BP 115 / 65 (auto/); mlb1 07:01 Pulse 116 MON; Pulse Ox 94% ; mlb1 07:15 BP 100 / 58 (auto/); mlb1 07:16 Pulse 119 MON; mlb1 07:30 BP 104 / 84 (auto/); mlb1 07:31 Pulse 114 MON; Pulse Ox 94% ; mlb1 07:45 BP 116 / 11 (auto/); mlb1 07:48 Pulse 109 MON; mlb1 08:00 BP 102 / 68 (auto/); mlb1 08:00 Pulse 108 MON; Pulse Ox 92% ; mlb1 08:15 BP 124 / 72 (auto/); mlb1 08:16 Pulse 107 MON; Pulse Ox 92% ; mlb1 08:30 BP 125 / 82 (auto/); mlb1 08:31 Pulse 110 MON; Pulse Ox 95% ; mlb1 08:45 BP 134 / 75 (auto/); mlb1 08:46 Pulse 111 MON; Pulse Ox 97% ; mlb1 09:04 BP 132 / 82 (auto/); mlb1 09:05 Pulse 107 MON; mlb1 09:19 BP 130 / 91 (auto/); mlb1 09:20 Pulse 103 MON; Pulse Ox 94% ; mlb1 09:34 BP 132 / 69 (auto/); mlb1 09:35 Pulse 108 MON; Pulse Ox 93% ; mlb1 09:49 BP 118 / 75 (auto/); mlb1 09:50 Pulse 104 MON; mlb1 10:04 BP 149 / 88 (auto/); mlb1 10:05 Pulse 105 MON; mlb1 10:25 BP 111 / 61 (auto/); mlb1 10:26 Pulse 103 MON; Pulse Ox 96% ; mlb1 10:27 BP 111 / 61; Pulse 103; Resp 16; Pulse Ox 97% on 3 lpm NC; Pain 6/10; mlb1 10:34 BP 123 / 73 (auto/); mlb1 10:35 Pulse 102 MON; Pulse Ox 94% ; mlb1 10:49 BP 129 / 69 (auto/); mlb1 10:50 Pulse 94 MON; Pulse Ox 91% ; mlb1 11:04 BP 129 / 60 (auto/); mlb1 11:05 Pulse 101 MON; Pulse Ox 94% ; mlb1 11:19 BP 125 / 66 (auto/); mlb1 11:20 Pulse 92 MON; Pulse Ox 92% ; mlb1 11:34 BP 121 / 83 (auto/); mlb1 11:35 Pulse 95 MON; mlb1 11:49 BP 118 / 72 (auto/); mlb1 11:50 Pulse 98 MON; mlb1 11:59 BP 116 / 75 (auto/); mlb1 12:00 Pulse 96 MON; Pulse Ox 97% ; mlb1 12:04 BP 132 / 84 (auto/); mlb1 12:05 Pulse 94 MON; Pulse Ox 98% ; mlb1 12:19 BP 130 / 85 (auto/); mlb1 12:20 Pulse 93 MON; Pulse Ox 96% ; mlb1 12:34 BP 136 / 67 (auto/); mlb1 12:34 Pulse 95 MON; Pulse Ox 96% ; mlb1 14:50 BP 117 / 73; Pulse 100; Resp 20; Temp 98.5; Pulse Ox 94% ; jlf 06:13 Body Mass Index 23.73 (79.38 kg, 182.88 cm) sew Vitals: 06:13 Log In Time N/A - ambulance arrival. sew ED Course: 05:59 Kathe Quintero,RN is Primary Nurse. sew 05:59 Patient visited by Crissy Fritz. sew 05:59 Maria Sebastian is Private Physician. sew 05:59 Patient moved to 2 sew 06:10 Triage Initiated nn1 06:16 Patient visited by Crissy Fritz. sew 06:20 -Arterial Blood Gas Sent. dk 06:32 Patient visited by Josi Waldrop, Bag End Sewer. jlm 06:32 EKG done. (by ED staff). Reviewed by Rosangela Lorenzo DO. jlm 06:48 Maintain field IV. Dressing intact. Site clean & dry. Gauge & site: 18G in left AC. No kas2 procedures done that require assistance. 06:49 Inserted saline lock: 20 gauge in right antecubital area and blood collected. The kas2 patient tolerated the procedure well. 06:51 Patient visited by Kathe Quintero RN. kas2 06:59 Patient visited by Kathe Quintero RN. kas2 07:00 Lactic Acid (Ross tube on ice) Sent. kas2 07:00 CBC with Diff Sent. kas2 07:00 MED Profile Sent. kas2 07:00 Liver Profile Sent. kas2 07:00 -Blood Culture Sent. kas2 07:09 Malaika Contreras MD is Attending Physician. fg 07:10 Patient visited by Malaika Contreras MD. fg 07:22 BLOOD CULTURES Sent. mlb1 07:56 Patient visited by Ti Crook PCA. jlf 08:02 Primary Nurse role handed off by Kathe Quintero RN btw 08:45 [facility] Payment Agreement was scanned into [employer] and attached to record. mm15 09:04 Patient visited by Ti Crook PCA. jlf 09:08 CT Head Without Contrast Returned. EDMS 09:08 CT Maxilofacial W/out Contrast Returned. EDMS 09:42 Patient visited by Ti Crook PCA. jlf 09:48 Elbow, (AP\E\Lat) Returned. EDMS 09:48 Chest, 1 View Returned. EDMS 10:15 Patient visited by Ti Crook PCA. jlf 10:28 Patient visited by Los Velazquez, ABIMAEL. mlb1 11:00 Patient visited by Ti Crook PCA. jlf 11:01 Ani Lind is Hospitalizing Provider. fg 12:04 Patient visited by Los Velazquez, ABIMAEL. mlb1 12:30 EKG-ADULT Returned. EDMS 12:50 Patient moved to Ultrasound am17 13:25 Patient visited by Los Velazquez, ABIMAEL. mlb1 13:36 The patient / caregiver is instructed regarding the plan of care and ED course. mlb1 14:03 RENAL US Returned. EDMS 14:49 Knee, complete Returned. EDMS 14:50 Patient visited by Ti Crook PCA. jlf 14:50 HIPS BILAT W-AP PELVIS Returned. EDMS 01 07:50 T-Sheet-- Draft Copy was scanned into [employer] and attached to record. gb 12:42 ECG/EKG was scanned into [employer] and attached to record. gb 12:42 Trend VS was scanned into [employer] and attached to record. gb Administered Medications: 08/25 06:37 Drug: Albuterol-Ipratropium 3 ml [ipratropium-albuterol 0.5 mg-3 mg(2.5 mg base)/3 mL dk nebulization soln (3 mL)] Route: Inhalation; 06:46 Drug: amiodarone 150 mg [amiodarone 150 mg/100 mL (1.5 mg/mL) in dextrose, iso-osmotic kas2 IV (100 mL)] Route: IVP; Site: right antecubital; 10:10 Drug: morphine 2 mg [morphine 2 mg/mL intravenous cartridge (1 mL)] Route: IVP; Site: mlb1 right antecubital; 10:27 Follow up: BP 111 / 61; Pulse 103 bpm; Resp 16 bpm; Pulse Ox 97% 3 lpm Nasal Cannula; mlb1 Pain 6/10 Adult Attachments: 12:42 Trend VS gb RT: 08/25 06:20 ABG's drawn from right radial artery allens test done and positive pressure held for 5 dk minutes no bleeding noted pressure bandage applied specimen sent pt. tolerated well. 06:37 Initial Med Neb Given as ordered Patient was instructed and evaluated on procedure dk Patient tolerated procedure well without adverse effect. O2 via nasal cannula \T\ 4L/min. Respiratory: No deficits noted. Airway is patent Respiratory effort is even, unlabored, Breath sounds are diminished bilaterally. Order Results: Lab Order: -Arterial Blood Gas; SPEC'M 08/25/16 06:16 Test: ABG pH (ARTERIAL); Value: 7.378; Range: 7.350-7.450; Units: UNITS; Status: F Test: ABG PARTIAL PRESSURE CO2; Value: 58.9; Range: 35.0-45.0; Abnormal: Above high normal; Units: mmHg; Status: F Test: ABG PARTIAL PRESSURE O2; Value: 92.7; Range: 75.0-100.0; Units: mmHg; Status: F Test: ABG TOTAL CO2; Value: 35.7; Range: 23.0-31.0; Abnormal: Above high normal; Units: MEQ/L; Status: F Test: ABG HCO3; Value: 33.9; Range: 22.0-26.0; Abnormal: Above high normal; Units: MEQ/L; Status: F Test: ABG BASE EXCESS; Value: 6.8; Range: -2.0-2.0; Abnormal: Above high normal; Status: F Test: ABG STANDARD HCO3; Value: 30.6; Range: 22.0-26.0; Abnormal: Above high normal; Units: MEQ/L; Status: F Test: ABG O2 SATURATION; Value: 97.0; Range: 95.0-99.0; Units: %; Status: F Test: ABG DEVICE; Value: NASAL DARA; Status: F Lab Order: Lactic Acid (Ross tube on ice); SPEC'M 08/25/16 06:12 Test: LACTIC ACID LEVEL, LACTATE; Value: 0.8; Range: 0.4-2.0; Units: MMOL/L; Status: F Lab Order: CBC with Diff; SPEC'M 08/25/16 06:12 Test: WHITE BLOOD COUNT; Value: 12.9; Range: 4.0-10.0; Abnormal: Above high normal; Units: K/mm3; Status: F Test: RED BLOOD COUNT; Value: 4.55; Range: 4.30-6.10; Units: M/mm3; Status: F Test: HEMOGLOBIN; Value: 13.9; Range: 14.0-18.0; Abnormal: Below low normal; Units: g/dl; Status: F Test: HEMATOCRIT; Value: 43.8; Range: 42.0-52.0; Units: %; Status: F Test: MEAN CORPUSCULAR VOLUME; Value: 96.3; Range: 80.0-96.0; Abnormal: Above high normal; Units: fl; Status: F Test: MEAN CORPUSCULAR HEMOGLOBIN; Value: 30.6; Range: 27.0-33.0; Units: pg; Status: F Test: MEAN CORPUSCULAR HGB CONC; Value: 31.7; Range: 32.0-36.5; Abnormal: Below low normal; Units: g/dl; Status: F Test: RED CELL DISTRIBUTION WIDTH; Value: 14.1; Range: 11.5-14.5; Units: %; Status: F Test: PLATELET COUNT, AUTOMATED; Value: 219; Range: 150-450; Units: k/mm3; Status: F Test: NEUTROPHILS %; Value: 85.3; Range: 36.0-66.0; Abnormal: Above high normal; Units: %; Status: F Test: LYMPH %; Value: 6.6; Range: 24.0-44.0; Abnormal: Below low normal; Units: %; Status: F Test: MONO %; Value: 6.0; Range: 0.0-5.0; Abnormal: Above high normal; Units: %; Status: F Test: EOS %; Value: 0.2; Range: 0.0-3.0; Units: %; Status: F Test: BASO %; Value: 0.2; Range: 0.0-1.0; Units: %; Status: F Test: LARGE UNSTAINED CELL %; Value: 1.7; Range: 0.0-4.0; Units: %; Status: F Test: NEUTROPHILS #; Value: 11.0; Range: 1.8-7.7; Abnormal: Above high normal; Units: K/mm3; Status: F Test: LYMPH #; Value: 0.9; Range: 1.5-4.5; Abnormal: Below low normal; Units: K/mm3; Status: F Test: MONO #; Value: 0.8; Range: 0.0-0.8; Units: K/mm3; Status: F Test: EOS #; Value: 0.0; Range: 0.0-0.50; Units: K/mm3; Status: F Test: BASO #; Value: 0.0; Range: 0.0-0.2; Units: K/mm3; Status: F Test: LARGE UNSTAINED CELL #; Value: 0.2; Range: 0.0-0.4; Units: K/mm3; Status: F Lab Order: MED Profile; SPEC08/25/16 06:12 Test: GLUCOSE, FASTING; Value: 78; Range: 80-110; Abnormal: Below low normal; Units: MG/DL; Status: F Test: BLOOD UREA NITROGEN; Value: 20; Range: 7-18; Abnormal: Above high normal; Units: MG/DL; Status: F Test: CREATININE FOR GFR; Value: 1.50; Range: 0.70-1.30; Abnormal: Above high normal; Units: MG/DL; Status: F Test: GLOMERULAR FILTRATION RATE; Value: 49.7; Range: >49; Status: F Test: SODIUM LEVEL; Value: 146; Range: 136-145; Abnormal: Above high normal; Units: MEQ/L; Status: F Test: POTASSIUM SERUM; Value: 4.7; Range: 3.5-5.1; Units: MEQ/L; Status: F Test: CHLORIDE LEVEL; Value: 104; Range: 98-107; Units: MEQ/L; Status: F Test: CARBON DIOXIDE LEVEL; Value: 37; Range: 21-32; Abnormal: Above high normal; Units: MEQ/L; Status: F Test: ANION GAP; Value: 5; Range: 8-16; Abnormal: Below low normal; Units: MEQ/L; Status: F Test: CALCIUM LEVEL; Value: 8.9; Range: 8.8-10.2; Units: MG/DL; Status: F Test Note: ; Units are mL/min/1.73 m2 Chronic Kidney Disease Staging per NKF: Stage I & II GFR >=60 Normal to Mildly Decreased Stage III GFR 30-59 Moderately Decreased Stage IV GFR 15-29 Severely Decreased Stage V GFR <15 Very Little GFR Left ESRD GFR <15 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 Lab Order: Liver Profile; SPEC08/25/16 06:12 Test: AST/SGOT; Value: 74; Range: 15-37; Abnormal: Above high normal; Units: U/L; Status: F Test: ALT/SGPT; Value: 69; Range: 12-78; Units: U/L; Status: F Test: ALKALINE PHOSPHATASE; Value: 76; Range: 45-117; Units: U/L; Status: F Test: BILIRUBIN,TOTAL; Value: 1.1; Range: 0.2-1.0; Abnormal: Above high normal; Units: MG/DL; Status: F Test: BILIRUBIN,DIRECT; Value: 0.3; Range: 0.0-0.2; Abnormal: Above high normal; Units: MG/DL; Status: F Test: TOTAL PROTEIN; Value: 6.4; Range: 6.4-8.2; Units: GM/DL; Status: F Test: ALBUMIN; Value: 3.9; Range: 3.2-5.2; Units: GM/DL; Status: F Test: ALBUMIN/GLOBULIN RATIO; Value: 1.56; Range: 1.00-1.93; Status: F Lab Order: CARDIAC MARKER PANEL; SPEC'M 08/25/16 13:39 Test: CPK CREATINE PHOSPHOKINASE; Value: 1428; Range: 39-308; Abnormal: Above high normal; Units: U/L; Status: F Test: CK-MB VALUE MASS; Value: 19.0; Range: 0.0-3.6; Abnormal: Above high normal; Units: NG/ML; Status: F Test: MB/CK RELATIVE INDEX; Value: 1.33; Range: < OR =4; Status: F Test: TROPONIN I; Value: 0.64; Range: < 0.10; Abnormal: Above high normal; Units: NG/ML; Status: F Test Note: ; DIAGNOSIS CRITERIA MMB ng/ml Relative Index (RI) NON-AMI < or = 5 N/A ROSS ZONE > 5 < or = 4 AMI > 5 > 4 Lab Order: C REACTIVE PROTEIN QUANTITATIV; SPEC'M 08/25/16 13:39 Test: C REACTIVE PROTEIN QUANTITATIV; Value: 6.06; Range: 0.00-0.30; Abnormal: Above high normal; Units: MG/DL; Status: F Radiology Order: EKG-ADULT Test: EKG-ADULT REASON FOR EXAMINATION: irregular heart rate; Stationary ECG Study; [facility] - ED; ; Test Date: 2016-08-25; Pat Name: DIPAK VILLASENOR Department:; Room: -; Gender: M Stripper Preliminary: bree; : 1950 Requested By: ROSANGELA LORENZO; Order Number: [id number] Reading MD: Crissy Redmond; Measurements; Intervals [place]; Rate: 121 P: 57; NV: 142 QRS: 68; QRSD: 102 T: 30; QT: 285; QTc: 405; Interpretive Statements; SINUS TACHYCARDIA WITH OCCASIONAL VENTRICULAR PREMATURE COMPLEXES; ABNORMAL RHYTHM ECG; NSTTW ABNORMALITY; SIMILAR 12/15/15; Electronically Signed On 08-25-2016 12:07:39 EST by Crissy Redmond; Radiology Order: CT Head Without Contrast Test: CT Head Without Contrast REASON FOR EXAMINATION: Syncope; CT brain without contrast 08/25/2016; ; Indication: Syncope; ; Comparison: None; ; Findings: There is moderate generalized cerebral volume loss small scattered; periventricular subcortical hypodensities are consistent with chronic small; vessel ischemic disease. Old tiny left thalamic lacunar infarct is noted. There; is moderate bilateral carotid siphon calcification ,There is no intracranial; hemorrhage or extra-axial fluid collection. There is no midline shift or mass; effect.; ; Contour deformity within the left maxillary sinus consistent with old healed; depressed fracture of the left anterior and lateral campos of the maxillary; sinus.; ; Small amount of mucoperiosteal thickening present in the bilateral; frontoethmoidal recesses.; ; Visualized portions of the mastoid sinuses There is no intracranial hemorrhage or; extra-axial fluid collection. There is no midline shift or mass effect.; ; Impression:; ; No acute intracranial pathology or hemorrhage; ; Moderate cerebral volume loss with mild chronic small vessel ischemic disease.; Old tiny left thalamic lacunar infarct is noted.; ; Mucoperiosteal thickening in bilateral frontoethmoidal recesses; ; ; ; ; Signed by; Maryjane Maya MD 08/25/2016 08:38 A; Radiology Order: Chest, 1 View Test: Chest, 1 View REASON FOR EXAMINATION: Syncope; Clinical: Syncope.; ; Comparison: 12/15/2015.; ; Findings:; Diffuse chronic pleural parenchymal changes are noted. Mediastinum and cardiac; silhouette are stable. Superimposed pulmonary venous congestion and interstitial; edema as well as right basilar atelectasis cannot be excluded. No effusion. No; pneumothorax. Skeletal structures stable.; ; Impression:; Cannot exclude pulmonary venous congestion/interstitial edema as well as trace; right basilar atelectasis.; ; ; Signed by; Gregg Trotter MD 08/25/2016 09:22 A; Radiology Order: CT Maxilofacial W/out Contrast Test: CT Maxilofacial W/out Contrast REASON FOR EXAMINATION: fall; MAXILLOFACIAL CT WITHOUT CONTRAST:; ; HISTORY: Fall.; ; Minimal mucosal thickening is present in the ethmoid sinuses. A 7 mm osteoma is; present in the right frontal sinus. A 5 mm osteoma is present in the left frontal; sinus. The remaining sinuses are clear. The osteomeatal units are patent. The; middle and inferior nasal turbinates are partially paradoxical. There is satnam; bullosa of the middle nasal turbinates. There is mild deviation of the nasal; septum to the left. A spur is present arising from the left side of the nasal; septum. The cribriform plate, medial campos of the orbits and optic canals are; intact. The carotid canals form a segment of the posterolateral campos of the; sphenoid sinus. The left sphenoid sinus septum inserts into left internal carotid; canal wall. There is no fracture.; ; IMPRESSION:; ; 1. Sinus mucosal thickening as described above.; ; 2. 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 There; is soft tissue swelling, moderate overlying the olecranon process. Small; corticated calcific fragment of bone 3 mm maximal dimension is seen off the; coronoid process, likely related to old avulsion or ligamentous calcification.; There is no visualized acute fracture there is no evidence of elbow joint; effusion; ; Impression: moderate soft tissue swelling overlying the olecranon process may be; related to post traumatic changes or olecranon bursitis.; ; 3 mm corticated fragment in the from the region of the coronoid process, does not; appear acute.; ; ; ; Right elbow: Oblique and lateral views, with slightly limited positioning.; There is soft tissue swelling and irregularity overlying the olecranon process; and the dorsal proximal ulna. There is no visualized acute fracture or; dislocation. There is no visualized joint effusion.; ; There is a small IV catheter within the antecubital fossa.; ; Impression: No acute fracture or dislocation within the right elbow. No joint; effusion; ; ; ; ; ; ; ; ; ; ; Signed by; Maryjane Maya MD 08/25/2016 09:14 A; Radiology Order: RENAL US Test: RENAL US REASON FOR EXAMINATION: fatoumata; RENAL AND BLADDER ULTRASOUND:; ; Real-time sonographic evaluation of the kidneys performed and demonstrates both; kidneys to be normal in size and echotexture, right kidney measuring 12.8 x 5.5 x; 5.7 cm and left kidney 11.3 x 6.8 x 5.3 cm. There is no hydronephrosis, renal; mass or nephrolithiasis. The urinary bladder is moderately distended with no; definite mass or calculus. There is mild debris in the bladder.; ; IMPRESSION:; No hydronephrosis. Debris is seen in the bladder.; ; Unreviewed; Radiology Order: Knee, complete Test: Knee, complete REASON FOR EXAMINATION: fall; BILATERAL KNEE SERIES:; ; Five views of bilateral knees performed.; ; There is no acute fracture or dislocation. There is mild medial joint space; narrowing bilaterally. There is bilateral chondrocalcinosis. Ligamentous; calcification is seen along the left medial femoral condyle. Posterior vascular; calcifications are seen bilaterally. There is slight patellofemoral compartment; narrowing on the left.; ; IMPRESSION:; Mild bilateral degenerative changes. No fracture or dislocation.; ; ; ; Unreviewed; Radiology Order: HIPS BILAT W-AP PELVIS Test: HIPS BILAT W-AP PELVIS REASON FOR EXAMINATION: fall; ; PELVIS AND BILATERAL HIPS:; ; AP view of the pelvis and AP and frogleg views of bilateral hips performed.; ; There is a total right hip prosthesis which appears to be in good position.; However, there is a nondisplaced fracture of the proximal right femur only seen; on the frogleg view. This appears to be in the immediate subtrochanteric region.; I see no other evidence of acute fracture or dislocation.; ; There are vascular calcifications in the pelvis. There is are degenerative; changes of the lower lumbar spine.; ; IMPRESSION:; Nondisplaced fracture, proximal right femur adjacent to the stem of the metallic; prosthesis at that location.; ; ; ; Unreviewed; Outcome: 11:02 Decision to Hospitalize by Provider. fg 13:25 CT Study completed. [facility] 14:49 Discharge Assessment: patient administered narcotics - yes. Patient was admitted to the [address] or transferred to another facility. 14:49 The following High Risk Discharge criteria are identified: None. Admitted to PCU [facility] accompanied by nurse, family with patient, via stretcher, with oxygen, on monitor, with chart. Condition: stable. Property :Personal belongings accompany Pt. 14:53 Patient left the ED. [facility] Signatures: Dispatcher [employer] EDMS Sheree Muhammad, Aniket Reg Los Singh RN RN mlb1 Chelsea Mtz RN RN ck1 Cheryl Almaguer,RT RT Reji Diaz PA PA btw Crissy Fritz Marlynn mm15 Ti Crook, COMMUNICATION EQUIPMENT MECHANIC COMMUNICATION EQUIPMENT MECHANIC jlf Yamile James am17 Josi Waldrop, [employer] jlm Rachel Ribeiro RN RN nn1 Malaika Contreras MD MD fg Smith, Kim,RN RN kas2 Corrections: (The following items were deleted from the chart) 14:50 14:49 Discharge Assessment: patient administered narcotics - no [place] [id number] Chart Complete MTDD
[2016-08-27] MEDS: cefTRIAXone SOD 1 GM in D5W MINI-BAG PLUS 50 ML IV SCH (16:44)
[2016-08-27] MEDS: AZITHROMYCIN 250 MG TAB PO SCH (16:44)
--- NOTE | 2016-08-27 17:56 | IPN ---
DATE: 08/27/2015 Patient seen and examined. No acute events overnight. Patient reported diffuse muscle aches currently today. Denies any fevers or chills. Denies any chest pain, pressure, or discomfort. Denies any dyspnea. VITAL SIGNS: Temperature 97.3, pulse 96, respirations 18, blood pressure 122/68, pulse oximetry 96% on 3 liters nasal cannula. LABORATORY DATA: WBC 7.9, hemoglobin and hematocrit 11.2/35.4, platelets 147. Chemistry: Sodium 144, potassium 4.3, chloride 102, bicarbonate 39, BUN 18, creatinine 0.49, magnesium 1.7. PHYSICAL EXAMINATION: GENERAL: Patient alert and oriented times three in no acute distress. HEENT: Facial nasal abrasion, right conjunctival hemorrhage. Bilateral chest wall mild erythema and abrasion, much improved. Bilateral elbow and knee abrasions. PULMONARY: Mild expiratory wheezes. CARDIAC: Regular rate and rhythm. Normal S1, S2. ABDOMEN: Soft, nontender, nondistended. Positive bowel sounds. EXTREMITIES: Able to move all four extremities. Right lower extremity slightly tender to movement. Bilateral lower extremities: Knee with erythema and abrasion. Elbows: Bilateral abrasions and dressing clean, dry, and intact. ASSESSMENT AND PLAN: This is a 66-year-old male patient with underlying medical history of advanced chronic obstructive pulmonary disease (COPD), on oxygen and steroid dependent, emphysema, dyslipidemia, baseline ambulating with a cane only on one foot, admitted status post mechanical fall. As per patient, slipped. Also with encephalopathy on admission, rhabdomyolysis, nondisplaced right femur fracture. 1. Fall with nondisplaced right femur fracture. Orthopedics, Dr. Pérez, consulted. Patient sees Dr. Sheridan as per orthopedics. Protective weightbearing with a walker. Physical therapy (PT) ordered. Patient needs to followup with Dr. Sheridan in 5-7 days in orthopedic office. Pain regimen as prescribed. Telemetry monitoring, cardiac enzymes. Orthostatic vital signs negative. 2. Echocardiogram appreciated. 3. Rhabdomyolysis, likely secondary to prolonged time on the floor. Intravenous (IV) fluids initially provided. CPK repeat appreciated. Kidney function within normal limits. Strict intake and output 4. Acute kidney injury, likely secondary to rhabdomyolysis and dehydration. Intravenous (IV) fluids initially provided. Currently back to baseline. Continue to monitor. 5. Leukocytosis and tachycardia, likely secondary to COPD and pneumonia. Questionable community-acquired bacterial pneumonia. Antibiotic has been ordered. CT scan appreciated. C-reactive protein elevated. Prednisone back to baseline dosage. Continue oxygen supplementation. Continue home medications. Advair has been added. Nebulizer treatment. 6. Deconditioning. Physical therapy, weightbearing as per orthopedics. 7. Chronic hypoxia. Oxygen supplementation. Treatment of COPD as above. 8. Dyslipidemia. Continue statin. 9. Deep vein thrombosis (DVT) prophylaxis. Heparin subcutaneous. DISPOSITION PLANNING: Pending physical therapy. Needs outpatient followup with orthopedics, Dr. Sheridan, in 5-7 days.
[2016-08-27] MEDS: **NOTE PATIENT COMMENT** MISC XX SCH (20:27)
[2016-08-27] MEDS: MONTELUKAST 10 MG TAB PO SCH (20:27)
[2016-08-27] MEDS: ATORVASTATIN 20 MG TAB PO SCH (20:27)
[2016-08-27 22:00] VITALS: BP 110/67
[2016-08-27 23:02] VITALS: O2SAT 96
[2016-08-28] MEDS: IPRATROPIUM 0.5MG/ALBUTEROL 2.5MG INH SOL UD 3ML (DUONEB)(J7620) NEB SCH ×4 (02:00→19:48)
[2016-08-28 06:00] VITALS: BP 127/83
[2016-08-28 06:54] LABS: MEAN CORPUSCULAR HEMOGLOBIN 30.7 pg (27.0-33.0); MEAN CORPUSCULAR VOLUME 96.2 fl (80.0-96.0); RED CELL DISTRIBUTION WIDTH 13.8 % (11.5-14.5); WHITE BLOOD COUNT 6.4 K/mm3 (4.0-10.0)
[2016-08-28 07:03] LABS: ANION GAP 4 MEQ/L (8-16); BLOOD UREA NITROGEN 15 MG/DL (7-18); CARBON DIOXIDE LEVEL 39 MEQ/L (21-32); CHLORIDE LEVEL 101 MEQ/L (98-107); CREATININE FOR GFR 0.44 MG/DL (0.70-1.30); GLOMERULAR FILTRATION RATE > 60.0 (>49); GLUCOSE, FASTING 102 MG/DL (80-110); MAGNESIUM LEVEL 1.8 MG/DL (1.8-2.4); POTASSIUM SERUM 4.4 MEQ/L (3.5-5.1); SODIUM LEVEL 144 MEQ/L (136-145)
[2016-08-28] MEDS: ADVAIR DISKUS 500/50 INH PWD INH SCH ×2 (07:15→19:48)
[2016-08-28] MEDS: HEPARIN SOD (PORCINE) 5000 UNITS/ML VIAL SC SCH ×2 (09:30→22:01)
[2016-08-28] MEDS: AZITHROMYCIN 250 MG TAB PO SCH (09:31)
[2016-08-28] MEDS: ALPRAZolam 0.5 MG TAB PO PRN (09:31)
[2016-08-28] MEDS: PANTOPRAZOLE 40MG TAB (PROTONIX) PO SCH (09:31)
[2016-08-28] MEDS: predniSONE 10 MG TAB PO SCH ×3 (09:31→22:00)
[2016-08-28] MEDS: SENOKOT S TAB PO SCH ×2 (09:31→22:00)
[2016-08-28] MEDS: PERCOCET 5MG/325MG TAB PO PRN ×2 (09:32→18:36)
[2016-08-28] MEDS: NICOTINE 21MG/24HR 1 EA TRANSDERMAL TD SCH (09:35)
[2016-08-28 14:00] VITALS: BP_SYST 123; BP_SYST 140; BP_DIAS 62; BP_DIAS 89
[2016-08-28] MEDS: cefTRIAXone SOD 1 GM in D5W MINI-BAG PLUS 50 ML IV SCH (16:37)
[2016-08-28] MEDS: **NOTE PATIENT COMMENT** MISC XX SCH (21:00)
[2016-08-28 22:00] VITALS: BP 113/74
[2016-08-28] MEDS: MONTELUKAST 10 MG TAB PO SCH (22:00)
[2016-08-28] MEDS: ATORVASTATIN 20 MG TAB PO SCH (22:00)
--- NOTE | 2016-08-28 22:09 | IPNPDOC ---
Assessment/Plan Date Seen The patient was seen on 08/28/16. Problems Problems: (1) Fracture, femur Status: Acute Problem Text: has nondisplaced proximal shaft femur on the right in the peritrochanteric region for protected weight bearing. pain control with narcotics PT. (2) COPD (chronic obstructive pulmonary disease) Status: Chronic Problem Text: oxygen and steroid dependent. will continue with nebulizations, steroids. advair, singulair. (3) Severe muscle deconditioning Status: Chronic Problem Text: from chronic disease . will need PT. (4) Chronic respiratory failure with hypoxia and hypercapnia Status: Chronic (5) Rhabdomyolysis Status: Acute Problem Text: due to fall , fracture and being down on ground for several hours. (6) Dyslipidemia Status: Chronic (7) Fall Status: Acute Problem Text: due to tripping on oxygen tubing, was down for several hours Has fracture femur and also knee, chest, and face abrassions. (8) Pulmonary nodules Status: Acute Problem Text: seen in CT chest needs 6 month follow up (9) PNA (pneumonia) Status: Resolved Problem Text: initially thought to be present on admission how ever ct chest shows only copd and atelectasis. stopped antibiotics. (10) Acute kidney injury Status: Resolved Problem Text: prerenal (11) Metabolic encephalopathy Status: Resolved Problem Text: due to dehydration , acute trauma Plan / VTE VTE Prophylaxis Ordered?: Yes Subjective Review of Systems CC/HPI The patient is a 66-year-old male admitted with a reason for visit of FALL. Events since last encounter denies any new complaints today. denies any SOB , denies any fever or chills, denies any cough or phlegm, denies any chest pain , denies abdominal pain nausea or vomiting. Objective Physical Examination General Exam: Positive: Alert, Cooperative, No Acute Distress Eye Exam: Positive: Conjunctiva & lids normal, EOMI, PERRLA, Negative: Sclera icteric Neck Exam: Positive: Supple, Negative: JVD, thyromegaly Chest Exam: Positive: Clear to auscultation, Diminished Heart Exam: Positive: Normal S1, Normal S2, Rate Normal, Regular Rhythm, Negative: Murmurs, Rubs Abdomen Exam: Positive: Normal bowel sounds, Soft, Negative: Hepatospenomegaly, Tenderness Extremity Exam: Positive: Normal pulses, Negative: Clubbing, Cyanosis, Edema Vital Signs/I&O Vital Signs Date Time Temp Pulse Resp B/P Pulse Ox O2 Delivery O2 Flow Rate FiO2 08/28/16 19:50 Nasal Cannula 3.0 08/28/16 19:07 18 08/28/16 14:00 97.7 83 123/62 98 I&O- Last 24 Hours up to 6 AM 08/28/16 06:00 Intake Total 2580 ml Output Total 900 ml Balance 1680 ml Laboratory Data Labs 24H Laboratory Tests 2 08/28/16 06:16: Anion Gap 4L, Blood Urea Nitrogen 15, Creatinine 0.44L, Sodium Level 144, Potassium Level 4.4, Chloride Level 101, Carbon Dioxide Level 39H, Calcium Level 9.0, Glomerular Filtration Rate > 60.0, Magnesium Level 1.8 CBC/BMP Laboratory Tests 08/28/16 06:16 Calcium Level 9.0, Red Blood Count 3.66 L, Mean Corpuscular Volume 96.2 H, Mean Corpuscular Hemoglobin 30.7, Mean Corpuscular Hemoglobin Concent 32.0, Red Cell Distribution Width 13.8 Microbiology Microbiology 08/25/16 Blood Culture - Preliminary, Resulted No Growth after 72 hours. All specime... 08/25/16 Blood Culture - Preliminary, Resulted No Growth after 72 hours. All specime... HAYDEE MORRELL MD Aug 28, 2016 22:09
[2016-08-29] MEDS: IPRATROPIUM 0.5MG/ALBUTEROL 2.5MG INH SOL UD 3ML (DUONEB)(J7620) NEB SCH ×4 (01:40→18:02)
[2016-08-29] MEDS: **NOTE PATIENT COMMENT** MISC XX SCH (04:23)
[2016-08-29 06:00] VITALS: BP 120/66
[2016-08-29 06:08] LABS: ABG BASE EXCESS 8.2 (-2.0-2.0); ABG HCO3 33.3 MEQ/L (22.0-26.0); ABG PARTIAL PRESSURE CO2 48.3 mmHg (35.0-45.0); ABG PARTIAL PRESSURE O2 86.6 mmHg (75.0-100.0); ABG TOTAL CO2 34.8 MEQ/L (23.0-31.0); ABG pH (ARTERIAL) 7.457 UNITS (7.350-7.450)
[2016-08-29 06:24] LABS: MEAN CORPUSCULAR HEMOGLOBIN 31.1 pg (27.0-33.0); MEAN CORPUSCULAR HGB CONC 32.8 g/dl (32.0-36.5); MEAN CORPUSCULAR VOLUME 94.8 fl (80.0-96.0); RED CELL DISTRIBUTION WIDTH 13.7 % (11.5-14.5); WHITE BLOOD COUNT 5.6 K/mm3 (4.0-10.0)
[2016-08-29 06:47] LABS: ANION GAP 6 MEQ/L (8-16); BLOOD UREA NITROGEN 13 MG/DL (7-18); CALCIUM LEVEL 9.3 MG/DL (8.8-10.2); CARBON DIOXIDE LEVEL 39 MEQ/L (21-32); CHLORIDE LEVEL 98 MEQ/L (98-107); CREATININE FOR GFR 0.41 MG/DL (0.70-1.30); GLOMERULAR FILTRATION RATE > 60.0 (>49); GLUCOSE, FASTING 88 MG/DL (80-110); MAGNESIUM LEVEL 1.8 MG/DL (1.8-2.4); SODIUM LEVEL 143 MEQ/L (136-145)
[2016-08-29] MEDS: PERCOCET 5MG/325MG TAB PO PRN ×3 (06:54→16:15)
[2016-08-29] MEDS: ADVAIR DISKUS 500/50 INH PWD INH SCH ×2 (07:11→19:38)
[2016-08-29] MEDS: HEPARIN SOD (PORCINE) 5000 UNITS/ML VIAL SC SCH ×2 (09:12→20:29)
[2016-08-29] MEDS: SENOKOT S TAB PO SCH ×2 (09:12→20:30)
[2016-08-29] MEDS: predniSONE 10 MG TAB PO SCH ×3 (09:12→20:30)
[2016-08-29] MEDS: PANTOPRAZOLE 40MG TAB (PROTONIX) PO SCH (09:13)
[2016-08-29] MEDS: ALPRAZolam 0.5 MG TAB PO PRN (09:13)
[2016-08-29] MEDS: NICOTINE 21MG/24HR 1 EA TRANSDERMAL TD SCH (09:13)
[2016-08-29 14:00] VITALS: BP 132/89
[2016-08-29] MEDS: LIDOCAINE 5% (LIDODERM) PATCH TD PRN (16:16)
--- NOTE | 2016-08-29 17:16 | IPNPDOC ---
Assessment/Plan Date Seen The patient was seen on 08/29/16. Problems Problems: (1) Fracture, femur Status: Acute Problem Text: has nondisplaced proximal shaft femur on the right in the peritrochanteric region for protected weight bearing. pain control with narcotics PT clearance then dc home. (2) COPD (chronic obstructive pulmonary disease) Status: Chronic Problem Text: oxygen and steroid dependent. will continue with nebulizations, steroids. advair, singulair. (3) Severe muscle deconditioning Status: Chronic Problem Text: from chronic disease . will need PT. (4) Chronic respiratory failure with hypoxia and hypercapnia Status: Chronic (5) Rhabdomyolysis Status: Acute Problem Text: due to fall , fracture and being down on ground for several hours. (6) Dyslipidemia Status: Chronic (7) Fall Status: Acute Problem Text: due to tripping on oxygen tubing, was down for several hours Has fracture femur and also knee, chest, and face abrassions. (8) Pulmonary nodules Status: Acute Problem Text: seen in CT chest needs 6 month follow up (9) PNA (pneumonia) Status: Resolved Problem Text: initially thought to be present on admission how ever ct chest shows only copd and atelectasis. stopped antibiotics. (10) Acute kidney injury Status: Resolved Problem Text: prerenal (11) Metabolic encephalopathy Status: Resolved Problem Text: due to dehydration , acute trauma Plan / VTE VTE Prophylaxis Ordered?: Yes Subjective Review of Systems CC/HPI The patient is a 66-year-old male admitted with a reason for visit of FALL. Events since last encounter no complaints am , still very unstable on ambulation , PT to evaluate Objective Physical Examination General Exam: Positive: Alert, Cooperative, No Acute Distress Eye Exam: Positive: Conjunctiva & lids normal, EOMI, PERRLA, Negative: Sclera icteric Neck Exam: Positive: Supple, Negative: JVD, thyromegaly Chest Exam: Positive: Clear to auscultation, Diminished Heart Exam: Positive: Normal S1, Normal S2, Rate Normal, Regular Rhythm, Negative: Murmurs, Rubs Abdomen Exam: Positive: Normal bowel sounds, Soft, Negative: Hepatospenomegaly, Tenderness Extremity Exam: Positive: Normal pulses, Negative: Clubbing, Cyanosis, Edema Vital Signs/I&O Vital Signs Date Time Temp Pulse Resp B/P Pulse Ox O2 Delivery O2 Flow Rate FiO2 08/29/16 16:47 18 Nasal Cannula 3.0 08/29/16 14:00 97.1 83 132/89 98 I&O- Last 24 Hours up to 6 AM 08/29/16 06:00 Intake Total 1130 ml Output Total 3575 ml Balance -2445 ml Laboratory Data Labs 24H Laboratory Tests 2 08/29/16 05:41: Anion Gap 6L, Blood Urea Nitrogen 13, Creatinine 0.41L, Sodium Level 143, Potassium Level 4.0, Chloride Level 98, Carbon Dioxide Level 39H, Calcium Level 9.3, Glomerular Filtration Rate > 60.0, Magnesium Level 1.8 08/29/16 05:58: Arterial Blood pH 7.457H, Arterial Blood Partial Pressure CO2 48.3H, Arterial Blood Partial Pressure O2 86.6, Arterial Blood Total CO2 34.8H, Arterial Blood HCO3 33.3H, Arterial Blood Base Excess 8.2H, Arterial Blood Oxygen Saturation 96.4, Blood Gas Bicarbonate Standard 32.0H CBC/BMP Laboratory Tests 08/29/16 05:41 Calcium Level 9.3, Red Blood Count 3.85 L, Mean Corpuscular Volume 94.8, Mean Corpuscular Hemoglobin 31.1, Mean Corpuscular Hemoglobin Concent 32.8, Red Cell Distribution Width 13.7 Microbiology Microbiology 08/25/16 Blood Culture - Preliminary, Resulted No Growth after 72 hours. All specime... 08/25/16 Blood Culture - Preliminary, Resulted No Growth after 72 hours. All specime... HAYDEE MORRELL MD Aug 29, 2016 17:16
[2016-08-29] MEDS: MONTELUKAST 10 MG TAB PO SCH (20:30)
[2016-08-29] MEDS: ATORVASTATIN 20 MG TAB PO SCH (20:30)
[2016-08-29 22:00] VITALS: BP 127/71
[2016-08-30] MEDS: IPRATROPIUM 0.5MG/ALBUTEROL 2.5MG INH SOL UD 3ML (DUONEB)(J7620) NEB SCH ×4 (01:49→19:23)
[2016-08-30 06:00] VITALS: BP 117/77
[2016-08-30 07:01] LABS: MEAN CORPUSCULAR HEMOGLOBIN 30.6 pg (27.0-33.0); MEAN CORPUSCULAR HGB CONC 32.8 g/dl (32.0-36.5); MEAN CORPUSCULAR VOLUME 93.5 fl (80.0-96.0); RED CELL DISTRIBUTION WIDTH 14.6 % (11.5-14.5); WHITE BLOOD COUNT 8.3 K/mm3 (4.0-10.0)
[2016-08-30 07:15] LABS: ANION GAP 6 MEQ/L (8-16); BLOOD UREA NITROGEN 15 MG/DL (7-18); CALCIUM LEVEL 9.7 MG/DL (8.8-10.2); CARBON DIOXIDE LEVEL 39 MEQ/L (21-32); CHLORIDE LEVEL 97 MEQ/L (98-107); GLOMERULAR FILTRATION RATE > 60.0 (>49); GLUCOSE, FASTING 90 MG/DL (80-110); MAGNESIUM LEVEL 1.8 MG/DL (1.8-2.4); POTASSIUM SERUM 4.5 MEQ/L (3.5-5.1); SODIUM LEVEL 142 MEQ/L (136-145)
[2016-08-30] MEDS: ADVAIR DISKUS 500/50 INH PWD INH SCH ×2 (08:19→19:23)
[2016-08-30] MEDS: HEPARIN SOD (PORCINE) 5000 UNITS/ML VIAL SC SCH ×2 (08:48→20:25)
[2016-08-30] MEDS: SENOKOT S TAB PO SCH ×2 (08:48→20:25)
[2016-08-30] MEDS: PANTOPRAZOLE 40MG TAB (PROTONIX) PO SCH (08:48)
[2016-08-30] MEDS: predniSONE 10 MG TAB PO SCH ×3 (08:48→20:25)
[2016-08-30] MEDS: NICOTINE 21MG/24HR 1 EA TRANSDERMAL TD SCH (08:48)
[2016-08-30] MEDS: LIDOCAINE 5% (LIDODERM) PATCH TD PRN (08:52)
[2016-08-30] MEDS: PERCOCET 5MG/325MG TAB PO PRN ×2 (08:52→15:49)
--- NOTE | 2016-08-30 08:59 | ECGEPIP ---
Stationary ECG Study 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
[2016-08-30 14:00] VITALS: BP 143/83
--- NOTE | 2016-08-30 15:57 | IPN ---
DATE: 08/30/2016 SUBJECTIVE: Today, the patient tells me that he is feeling well. He is not in any significant amount of pain. He denies any chest pain, shortness of breath, fevers, chills, nausea, vomiting, or diarrhea. He tells me that he may have been a little bit confused last evening when he was awoken from his sleep initially and that he was a little bit agitated and he wishes to apologize for this, but otherwise he has no specific complaints. OBJECTIVE: VITAL SIGNS: Temperature 98.4, pulse 63, respiratory rate 18, blood pressure 117/77, oxygen saturation 97% on 3 liters nasal cannula. GENERAL: He is a pleasant, man sitting up in bed. He does not appear to be in any acute distress. HEENT: He has abrasions on the bridge of his nose. He has moist mucous membranes. No elevation in his jugular venous pressure (JVP). CARDIOVASCULAR: S1, S2, regular. RESPIRATORY: Clear. ABDOMINAL: Benign. EXTREMITIES: Multiple abrasions and ecchymotic lesions. LABORATORY STUDIES: WBC 8.3, hemoglobin 14.1, hematocrit 43.1, platelet count 192. Chemistry panel: Sodium 142, potassium 4.5, chloride 97, bicarbonate 39, BUN 15, creatinine 0.6, magnesium 1.8. An arterial blood gas from this morning revealed a pH of 7.4, pCO2 of 48.3, and a pO2 of 86.6. Microbiology: Blood cultures are negative from 08/25/2016. No new imaging. ASSESSMENT AND PLAN: This is a 66-year-old man status post mechanical fall with a femur fracture. PROBLEMS: 1. Femur fracture. The patient has been seen by orthopedic surgery and as this is nondisplaced where he has had previous hardware, he is protective weightbearing, but no surgical intervention planned. He is to continue working with physical therapy (PT). Once physical therapy has cleared him, he can likely be discharged home with pain control. 2. Chronic obstructive pulmonary disease (COPD). The patient is oxygen and steroid dependent at his baseline. He is at his baseline at the present time. He takes prednisone 10 mg three times a day as well as oxygen 3 liters continuously which is what he is currently using and is quite stable. The patient is on Singulair, Advair, DuoNebs standing as well as as-needed. 3. Adrenal insufficiency. 4. Tobacco abuse. The patient recently quit alcohol and tobacco. He is using a nicotine patch. 5. Rhabdomyolysis secondary to fall and being down. Creatine kinase (CK) has peaked at 1557, last checked on 08/27/2016 and trending down. He is no longer on any intravenous (IV) fluids. 6. Deconditioning, likely secondary to chronic steroid use and to his fall. He continues to work with physical therapy. 7. Dyslipidemia. The patient is continued on Lipitor. 8. Pulmonary nodules found on CT scan. Recommend repeat imaging within the next 6 months. 9. Anxiety. The patient is continued on Xanax as needed. 10. Gastroesophageal reflux disease. The patient is continued on Protonix. 11. Acute kidney injury, prerenal and resolved. 12. Agitation and confusion in the middle of the night. At the present time the patient is completely oriented. I meet him bedside with his who agrees. I suspect there may be an element of sundowning while in hospital, but otherwise the patient is doing quite well. I suspect he may be able to be discharged within the next 24 hours pending physical therapy evaluation.
[2016-08-30] MEDS: **NOTE PATIENT COMMENT** MISC XX SCH (20:25)
[2016-08-30] MEDS: MONTELUKAST 10 MG TAB PO SCH (20:25)
[2016-08-30] MEDS: ATORVASTATIN 20 MG TAB PO SCH (20:25)
[2016-08-30 22:00] VITALS: BP 129/75
[2016-08-31] MEDS: IPRATROPIUM 0.5MG/ALBUTEROL 2.5MG INH SOL UD 3ML (DUONEB)(J7620) NEB SCH ×2 (01:40→06:13)
[2016-08-31 06:00] VITALS: BP 122/73
[2016-08-31] MEDS ORDERED: PERCOCET PO (06:58)
[2016-08-31 07:09] LABS: MEAN CORPUSCULAR HEMOGLOBIN 31.3 pg (27.0-33.0); MEAN CORPUSCULAR HGB CONC 33.4 g/dl (32.0-36.5); MEAN CORPUSCULAR VOLUME 93.8 fl (80.0-96.0); RED CELL DISTRIBUTION WIDTH 13.7 % (11.5-14.5); WHITE BLOOD COUNT 7.4 K/mm3 (4.0-10.0)
[2016-08-31 07:13] LABS: ANION GAP 6 MEQ/L (8-16); BLOOD UREA NITROGEN 18 MG/DL (7-18); CALCIUM LEVEL 9.6 MG/DL (8.8-10.2); CARBON DIOXIDE LEVEL 35 MEQ/L (21-32); CHLORIDE LEVEL 101 MEQ/L (98-107); CREATININE FOR GFR 0.63 MG/DL (0.70-1.30); GLOMERULAR FILTRATION RATE > 60.0 (>49); GLUCOSE, FASTING 113 MG/DL (80-110); MAGNESIUM LEVEL 1.8 MG/DL (1.8-2.4); POTASSIUM SERUM 4.2 MEQ/L (3.5-5.1); SODIUM LEVEL 142 MEQ/L (136-145)
[2016-08-31] MEDS: ADVAIR DISKUS 500/50 INH PWD INH SCH (08:02)
[2016-08-31] MEDS: predniSONE 10 MG TAB PO SCH (08:26)
[2016-08-31] MEDS: PANTOPRAZOLE 40MG TAB (PROTONIX) PO SCH (08:27)
[2016-08-31] MEDS: HEPARIN SOD (PORCINE) 5000 UNITS/ML VIAL SC SCH (08:27)
[2016-08-31] MEDS: SENOKOT S TAB PO SCH (08:27)
[2016-08-31] MEDS: NICOTINE 21MG/24HR 1 EA TRANSDERMAL TD SCH (08:27)
[2016-08-31] MEDS: ALPRAZolam 0.5 MG TAB PO PRN (08:30)
--- NOTE | 2016-08-31 17:02 | DSES ---
DATE OF ADMISSION: 08/25/2016 DATE OF DISCHARGE: 08/31/2016 DISCHARGE DIAGNOSIS: Nondisplaced femoral fracture. SECONDARY DIAGNOSES: 1. Chronic obstructive pulmonary disease (COPD). 2. Adrenal insufficiency. 3. Tobacco abuse. 4. Rhabdomyolysis. 5. Deconditioning. 6. Dyslipidemia. 7. Pulmonary nodules. 8. Anxiety. 9. Gastroesophageal reflux disease. 10. Acute kidney injury. HOSPITAL COURSE: The patient is a 66-year-old man who presented status post mechanical fall, tripping over his oxygen tubing in the middle of the night while attempting to get up from bed. He was admitted and found to have a nondisplaced femoral fracture. He was seen in consultation by Dr. Pérez who suggested no operative intervention. The patient was protected weightbearing. He received pain control with narcotics and underwent physical therapy. He did have some mild rhabdomyolysis that was due to his fall which resolved with intravenous (IV) fluids. He did progressively improve in regards to his symptoms to the point that he was cleared by physical therapy. Of note, on the day of admission, the patient did have a CT scan of his chest to rule out pneumonia and on that CT scan of the chest they found a new nodular density in the apical segment of the left lower lobe and lateral aspect of the left lower lobe which recommended 3-6 months followup. The patient, at this time, has improved and has been cleared by physical therapy. SUBJECTIVE: Today, the patient reports no complaints. No chest pain, shortness of breath, fevers, chills, nausea, vomiting, or diarrhea. OBJECTIVE: VITAL SIGNS: Temperature 98.1, pulse 65, respiratory rate 16, blood pressure 122/73, oxygen saturation 98% on 3 liters nasal cannula. GENERAL: He is a very pleasant, elderly, man, sitting in bed in his street clothes. He is accompanied by his who is a nurse down in maternity. The patient is in no acute distress. HEENT: He has an abrasion over the bridge of his nose. He has moist mucous membranes. No elevation in his central venous pressure. CARDIOVASCULAR: S1, S2, regular. RESPIRATORY: Clear. He has a prolonged expiratory phase. He is wearing 3 liters nasal cannula which is his baseline. ABDOMINAL: Obese. EXTREMITIES: He has some skin abrasions and ecchymotic lesions, but no clubbing, cyanosis, or edema. LABORATORY STUDIES: WBC 7.4, hemoglobin 13.6, hematocrit 40.8, platelet count 176. Chemistry panel: Sodium 142, potassium 4.2, chloride 101, bicarbonate 35, BUN 18, creatinine 0.6. Blood cultures from 08/25/2016 were negative. IMAGING: The patient had images of his hips that revealed nondisplaced fracture of the proximal right femur adjacent to the stem of the metallic prosthesis at that location. He had a chest CT that revealed left lung nodule with recommended 3-6 months followup. He also had a renal ultrasound which revealed no hydronephrosis but mild debris in the bladder. He had a CT scan of the head which revealed no acute intracranial pathology or hemorrhage. ASSESSMENT AND PLAN: This is a 66-year-old man status post mechanical fall with nondisplaced right femoral fracture related to hardware. PROBLEMS: 1. Femoral fracture. The patient has been evaluated by orthopedic surgery. At this time it is nondisplaced and no surgical intervention is planned. The patient has protected weightbearing. He has been cleared by physical therapy. He will be discharged home with 3 days worth of narcotics. He is to followup with orthopedic surgery in the outpatient setting. 2. Chronic obstructive pulmonary disease (COPD). The patient is oxygen and steroid dependent at his baseline, 3 liters of oxygen and 10 mg three times a day of prednisone. He is at his baseline. He is quite stable. He is using Singulair, Advair, DuoNebs. 3. Tobacco abuse. The patient recently quit all alcohol and tobacco products. He is using a nicotine patch. He states he has been clean for 3 months. 4. Rhabdomyolysis, secondary to fall and being down. His creatine kinase (CK) peaked at 1557, but has been trending down. He is no longer requiring intravenous (IV) fluids. 5. Deconditioning, likely secondary to steroid use and his fall. He has improved with working with physical therapy. 6. Dyslipidemia. The patient was continued on Lipitor. 7. Pulmonary nodules found on CT scan. Recommend repeat imaging within the next 3-6 months. 8. Anxiety. The patient was continued on Xanax as needed. 9. Gastroesophageal reflux disease. The patient was continued on Protonix. 10. Acute kidney injury, prerenal and resolved. 11. Deep venous thrombosis (DVT) prophylaxis. The patient has been on heparin. DISPOSITION: The patient is being discharged home to the care of his . He is to followup with his primary care provider (PCP) within 1 week, followup with orthopedic surgery within 1 week. Activity is protected weightbearing and using a walker. His diet is as prior to admission. He has been advised to return to the emergency room (ER) should his symptoms worsen. MEDICATIONS AT THE TIME OF DISCHARGE: - Percocet 5-325 one tablet every 4 hours as needed for pain, quantity #18 - Tylenol with codeine one tablet by mouth twice a day as needed for pain - ProAir HFA 108 mcg two puffs four times daily as needed for shortness of breath - DuoNeb solution four times daily inhaled as needed for shortness of breath - Combivent one puff inhaled four times daily - Xanax 1 mg twice a day as needed for anxiety - Lipitor 20 mg nightly - Breo Ellipta 100-25 inhaled once daily every morning - Lidoderm patch two patches transdermally daily as needed for pain - Singulair 10 mg daily - nicotine patch 21 mg per 24 hours daily - prednisone 10 mg three times a day Greater than 30 minutes spent organizing safe disposition.
== END 2016-08-31 09:51 | disposition home or self-care (01) | DRG 349 ==
LOC: M ED 05:58 → M ED INP 12:43 → M PCU 15:11 → M MSPAV 08-27 14:25
PROVIDERS: ADMIT Hospitalist; ATTEND Internal Medicine
DX: M97.01XA Periprosthetic fracture around internal prosthetic right hip joint, initial encounter (principal); G93.41 Metabolic encephalopathy; N17.9 Acute kidney failure, unspecified; J96.11 Chronic respiratory failure with hypoxia; J18.9 Pneumonia, unspecified organism; J96.12 Chronic respiratory failure with hypercapnia; M62.82 Rhabdomyolysis; R65.10 Systemic inflammatory response syndrome (SIRS) of non-infectious origin without acute organ dysfunction; Z99.81 Dependence on supplemental oxygen; E27.40 Unspecified adrenocortical insufficiency; J44.9 Chronic obstructive pulmonary disease, unspecified; E78.5 Hyperlipidemia, unspecified; F41.9 Anxiety disorder, unspecified; K21.9 Gastro-esophageal reflux disease without esophagitis; R91.1 Solitary pulmonary nodule; Z79.899 Other long term (current) drug therapy; W01.0XXA Fall on same level from slipping, tripping and stumbling without subsequent striking against object, initial encounter; Y92.002 Bathroom of unspecified non-institutional (private) residence as the place of occurrence of the external cause; Y93.01 Activity, walking, marching and hiking; Y99.9 Unspecified external cause status; Z91.81 History of falling; Z79.52 Long term (current) use of systemic steroids; Z87.891 Personal history of nicotine dependence; Z88.2 Allergy status to sulfonamides; Z91.038 Other insect allergy status; Z96.641 Presence of right artificial hip joint; Z96.651 Presence of right artificial knee joint; Z96.652 Presence of left artificial knee joint

== ENCOUNTER → 2016-11-30 | Outpatient (CLI) | payer BC, MEDICARE ==
[~2016-11-30] MED LIST changes: +ALPR1TAB3 PO; +MONT10TA2 PO; +NICO1DIS2 TD; +NICO7DIS2 TD; -NICO7DIS23 TD
[2016-11-30 19:39] LABS: BLOOD UREA NITROGEN 19 MG/DL (7-18); CREATININE FOR GFR 0.92 MG/DL (0.70-1.30); GLOMERULAR FILTRATION RATE > 60.0 (>49)
== END ==
LOC: M WUC 10:33
PROVIDERS: ATTEND Nurse Practitioner Family
DX: J44.9 Chronic obstructive pulmonary disease, unspecified (principal)

== ENCOUNTER 2016-12-09 17:36 | Emergency (ER) | payer BC, MEDICARE ==
[~2016-12-09] VITALS: Ht 185.4 cm; Wt 83.9 kg
[2016-12-09] MEDS ORDERED: INCR1INH IN (17:48)
[2016-12-09] MEDS ORDERED: MONT10TA2 PO (17:48)
[2016-12-09] MEDS ORDERED: NS 1,000 ML IV SCH (17:54)
[2016-12-09] MEDS: IPRATROPIUM 0.5MG/ALBUTEROL 2.5MG INH SOL UD 3ML (DUONEB)(J7620) NEB PRN ×3 (17:58→18:18)
[2016-12-09] MEDS ORDERED: methylPREDNISolone INJ 125 MG/2 ML VIAL (J2930) IV ONE (18:00)
[2016-12-09 18:18] LABS: ABG BASE EXCESS 7.9 (-2.0-2.0); ABG HCO3 33.8 MEQ/L (22.0-26.0); ABG PARTIAL PRESSURE CO2 52.3 mmHg (35.0-45.0); ABG PARTIAL PRESSURE O2 91.5 mmHg (75.0-100.0); ABG STANDARD HCO3 31.7 MEQ/L (22.0-26.0); ABG TOTAL CO2 35.4 MEQ/L (23.0-31.0); ABG pH (ARTERIAL) 7.428 UNITS (7.350-7.450)
--- NOTE | 2016-12-09 18:22 | REP ---
The portable chest, single AP view, the patient upright: Comparisons 11/28/2015. The lung chaves are clear. The cardiac size is normal. The candi, mediastinum, and bony thorax are unremarkable except for old healed left rib fractures, unchanged. Impression: Negative portable chest. Signed by Faisal Mchugh MD 12/09/2016 06:14 P
[2016-12-09 18:23] LABS: BASO % 0.4 % (0.0-1.0); EOS % 0.4 % (0.0-3.0); LARGE UNSTAINED CELL # 0.2 K/mm3 (0.0-0.4); LARGE UNSTAINED CELL % 1.5 % (0.0-4.0); LYMPH # 1.4 K/mm3 (1.5-4.5); LYMPH % 10.8 % (24.0-44.0); MEAN CORPUSCULAR HEMOGLOBIN 30.5 pg (27.0-33.0); MEAN CORPUSCULAR HGB CONC 32.1 g/dl (32.0-36.5); MONO # 0.6 K/mm3 (0.0-0.8); NEUTROPHILS # 9.2 K/mm3 (1.8-7.7); NEUTROPHILS % 81.9 % (36.0-66.0); PLATELET COUNT, AUTOMATED 250 k/mm3 (150-450); RED CELL DISTRIBUTION WIDTH 14.2 % (11.5-14.5); WHITE BLOOD COUNT 11.3 K/mm3 (4.0-10.0)
[2016-12-09 18:49] LABS: ALBUMIN 3.8 GM/DL (3.2-5.2); ALBUMIN/GLOBULIN RATIO 1.41 (1.00-1.93); ALKALINE PHOSPHATASE 60 U/L (45-117); ALT/SGPT 65 U/L (12-78); ANION GAP 2 MEQ/L (8-16); AST/SGOT 109 U/L (15-37); BILIRUBIN,DIRECT 0.3 MG/DL (0.0-0.2); BILIRUBIN,TOTAL 1.1 MG/DL (0.2-1.0); BLOOD UREA NITROGEN 22 MG/DL (7-18); CALCIUM LEVEL 9.8 MG/DL (8.8-10.2); CARBON DIOXIDE LEVEL 41 MEQ/L (21-32); CHLORIDE LEVEL 100 MEQ/L (98-107); CREATININE FOR GFR 0.84 MG/DL (0.70-1.30); GLOMERULAR FILTRATION RATE > 60.0 (>49); GLUCOSE, FASTING 88 MG/DL (80-110); SODIUM LEVEL 143 MEQ/L (136-145); TOTAL PROTEIN 6.5 GM/DL (6.4-8.2)
[2016-12-09] MEDS ORDERED: GI COCKTAIL 50ML BTL(HYOSCYAMINE/MAALOX/LIDOCAINE VISCOUS)(1:3:1) As Ordered ONE (18:52)
[2016-12-09] MEDS ORDERED: GI COCKTAIL 50ML BTL(HYOSCYAMINE/MAALOX/LIDOCAINE VISCOUS)(1:3:1) PO ONE (19:00)
[2016-12-09] MEDS ORDERED: ASPIRIN 325 MG TAB PO ONE (19:30)
[2016-12-09] MEDS ORDERED: HEPARIN DRIP 25,000 UNITS in APPROPRIATE DILUENT 1 EA IV SCH (19:37)
[2016-12-09] MEDS ORDERED: HEPARIN SOD (PORCINE) 5000 UNITS/ML VIAL IV ONE (19:45)
[2016-12-09 19:55] LABS: INR 0.92
[2016-12-09] MEDS ORDERED: TRAM50TA2 PO (20:31)
[2016-12-09 21:41] VITALS: BP 132/89
--- NOTE | 2016-12-13 08:57 | ECGEPIP ---
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
--- NOTE | 2016-12-13 08:57 | ECGEPIP ---
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
== END 2016-12-09 21:48 | disposition left against medical advice (07) ==
LOC: EDBD 17:36 → M ED 18:23
DX: I21.4 Non-ST elevation (NSTEMI) myocardial infarction (principal); J44.9 Chronic obstructive pulmonary disease, unspecified; M70.22 Olecranon bursitis, left elbow; X58.XXXA Exposure to other specified factors, initial encounter; Y92.018 Other place in single-family (private) house as the place of occurrence of the external cause; Y93.89 Activity, other specified; Y99.8 Other external cause status; C34.90 Malignant neoplasm of unspecified part of unspecified bronchus or lung; E27.40 Unspecified adrenocortical insufficiency; Z79.899 Other long term (current) drug therapy; Z79.51 Long term (current) use of inhaled steroids; Z91.030 Bee allergy status; Z88.2 Allergy status to sulfonamides
CPT/HCPCS: 36600; 71010; 80048; 80076; 82550; 82553; 82803; 83690; 83880; 85025; 85610; 85730; 93005; 93041; 94640; 96374; 99284; J2930